=== PATIENT | male | born 1950 | race Caucasian/White ===

== ENCOUNTER 2023-02-25 08:32 | Emergency (ER) | payer MEDICARE, BC, SELFPAY ==
[2023-02-25] VITALS (42 sets, daily range): BP systolic 110–134; BP diastolic 60–71; PULSE 41–62; RESP 18–20; TEMP 36.4–36.5; O2SAT 89–100; BMI 28.1
[2023-02-25] MEDS: diphenhydrAMINE 50 MG/ML inj 25 MG IVP (09:16)
[2023-02-25] MEDS: EPINEPHrine 0.3 MG PEN IM (09:16)
[2023-02-25] MEDS: METHYLPREDNISOLONE SOD SUCC 62.5 MG/ML (125) 125 MG IVP (09:17)
[2023-02-25] MEDS: FAMOTIDINE 10 MG/ML inj 20 MG IVP (09:17)
[2023-02-25] MEDS: TRANEXAMIC ACID 100 MG/ML INJ 1000 MG IV (09:29)
[2023-02-25] MEDS: 0.9 % SODIUM CHLORIDE 1000 ml 1,000 ML IV (11:17)
--- NOTE | 2023-02-25 11:59 | ED_ITS ---
HPI - General Adult General Date Seen: 02/25/23 Chief complaint: Allergic Reaction Stated complaint: swollen throat / tongue Time Seen by Provider: 02/25/23 08:52 History of Present Illness HPI narrative: This is a very pleasant 73-year-old male accompanied to the ER today by his with concern for swelling of his tongue, throat. He has a history of hypertension and is on lisinopril. He also on propranolol for blood pressure and a medication for migraine headache prophylaxis. He has not had any other new recent medications. No no recent foods. No change in his medication doses lately. When he woke up this morning he noticed the had swelling involving his tongue (more so on the left than on the right, the back of his throat, and a little bit under his chin. He is able to speak. No difficulty breathing. He says his mouth feels tight when he tries to swallow. No fever. No hives. No other difficulty breathing. No chest pain. No palpitations. No lightheadedness. His made him come here to the ER. His symptoms are more less stable since he 1st noticed them and not really getting worse. Related Data Home Medications Medication Instructions Recorded Confirmed latanoprost 0.005 % eye drops ml ophthalmic (eye) 05/06/22 11/08/22 loratadine 10 mg tablet 10 mg PO QDAY 05/06/22 11/08/22 propranolol 40 mg tablet 40 mg PO BID 05/06/22 11/08/22 Previous Rx's Medication Instructions Recorded albuterol sulfate 90 mcg/actuation 2 puff inhalation Q4-6H PRN 05/06/22 aerosol inhaler shortness of breath or wheezing #8.5 grams Allergies Allergy/AdvReac Type Severity Reaction Status Date / Time lisinopril Allergy Intermediate Swelling Verified 02/25/23 10:45 of Lip/Tongue/Throat clindamycin AdvReac Intermediate Unknown Verified 11/08/22 13:33 varenicline [From Chantix] AdvReac Intermediate hives Verified 11/08/22 13:33 [facility] Medical History (Updated 02/25/23 @ 14:11 by Pantera Sanabria MD) Smoker ?F17.200 - Nicotine dependence, unspecified, uncomplicated (ICD-10) Pneumonia ?J18.9 - Pneumonia, unspecified organism (ICD-10) Wheeze ?R06.2 - Wheezing (ICD-10) Social History Smoking Status: Never smoker Non-prescribed substance use: denies use Exam Narrative: Exam Narrative: Constitutional: Appears well-developed and well-nourished. Alert. Conversant. Non toxic. Speech is fluent. His words are slightly ?thick? sound in due to his swollen tongue. Phonation is normal. No stridor or hoarse voice. HENT: Head: Atraumatic. Nose: Nose normal. Mouth/Throat: Oral mucosa is clear and moist. He has a subtle amount of submandibular swelling, but no trismus. He does have swelling of the tongue, more on the left than on the right. Tongue protrudes easily. No evidence for swelling of the intraoral submandibular tissues. Gums are normal. . Tonsillar pillars are normal. Perhaps minimal swelling of the uvula, although this may just be a normal uvula for him (perhaps slightly longer than normal). Tonsils and Pharynx normal. Tonsils symmetric. No tonsillar enlargement, erythema, or exudate. Phonation normal. No stridor. Eyes: Conjunctivae normal. EOM normal. Pupils equal, round, and reactive to light. No scleral icterus. Neck: Normal range of motion. Neck supple. No tracheal deviation present. Trachea midline. Cardiovascular: Normal rate, regular rhythm. No gallop. No friction rub. No murmur heard. Symmetric radial artery pulses Pulmonary/Chest: Effort normal. No stridor. No respiratory distress. No wheezes. No rales. No rhonchi . No tenderness. Abdominal: Soft. Bowel sounds normal. No distension. No mass. No tenderness. No rebound. No guarding. Musculoskeletal: RUE: Normal range of motion. No tenderness. No deformity LUE: Normal range of motion. No tenderness. No deformity RLE: Normal range of motion. No edema. No tenderness. No deformity LLE: Normal range of motion. No edema. No tenderness. No deformity Lymph: No cervical adenopathy. Neurological: Alert and oriented to person, place, and time. Normal strength. CN II-VII intact. No sensory deficit. GCS eye subscore is 4. GCS verbal subscore is 5. GCS motor subscore is 6. Normal coordination Skin: Skin is warm and dry. No rash noted. No pallor. Normal capillary refill. Psychiatric: Normal mood. Normal affect. Const: Vital Signs, click to edit/add: Vital Signs - 24 hr 02/25/23 08:35 02/25/23 08:53 02/25/23 09:00 Temperature 97.6 F Pulse Rate 48 L 46 L Pulse Rate [Right Pulse Oximeter] 51 L Respiratory Rate 18 Blood Pressure Blood Pressure [Ri ght Upper Arm] 134/64 Pulse Oximetry 98 99 [facility] 02/25/23 09:02 02/25/23 09:15 02/25/23 09:30 Temperature Pulse Rate 45 L 48 L 46 L Pulse Rate [Right Pulse Oximeter] Respiratory Rate Blood Pressure 118/69 Blood Pressure [Ri ght Upper Arm] Pulse Oximetry 99 100 100 [facility] 02/25/23 09:32 02/25/23 09:45 02/25/23 10:00 Temperature Pulse Rate 49 L 49 L 50 L Pulse Rate [Right Pulse Oximeter] Respiratory Rate Blood Pressure 127/69 Blood Pressure [Ri ght Upper Arm] Pulse Oximetry 99 99 98 [facility] 02/25/23 10:02 02/25/23 10:15 02/25/23 10:30 Temperature Pulse Rate 48 L 57 L 58 L Pulse Rate [Right Pulse Oximeter] Respiratory Rate Blood Pressure 117/63 Blood Pressure [Ri ght Upper Arm] Pulse Oximetry 98 98 97 [facility] 02/25/23 10:32 02/25/23 10:33 02/25/23 10:45 Temperature Pulse Rate 52 L 53 L 62 Pulse Rate [Right Pulse Oximeter] Respiratory Rate Blood Pressure 113/60 Blood Pressure [Ri ght Upper Arm] Pulse Oximetry 98 99 89 [facility] 02/25/23 11:00 02/25/23 11:01 02/25/23 11:15 Temperature Pulse Rate 55 L 55 L 54 L Pulse Rate [Right Pulse Oximeter] Respiratory Rate Blood Pressure 118/63 Blood Pressure [Ri ght Upper Arm] Pulse Oximetry 99 98 97 [facility] 02/25/23 11:30 02/25/23 11:32 02/25/23 11:33 Temperature Pulse Rate 54 L 54 L 58 L Pulse Rate [Right Pulse Oximeter] Respiratory Rate Blood Pressure 110/68 Blood Pressure [Ri ght Upper Arm] Pulse Oximetry 97 97 97 [facility] 02/25/23 11:45 02/25/23 12:00 02/25/23 12:01 Temperature Pulse Rate 54 L 51 L 54 L Pulse Rate [Right Pulse Oximeter] Respiratory Rate Blood Pressure 110/63 Blood Pressure [Ri ght Upper Arm] Pulse Oximetry 98 97 98 Oxygen Delivery Me thod 02/25/23 12:02 02/25/23 12:15 02/25/23 12:30 Temperature Pulse Rate 52 L 54 L 52 L Pulse Rate [Right Pulse Oximeter] Respiratory Rate Blood Pressure Blood Pressure [Ri ght Upper Arm] Pulse Oximetry 97 100 99 Oxygen Delivery Me thod 02/25/23 12:32 02/25/23 12:33 02/25/23 12:45 Temperature Pulse Rate 54 L 49 L 51 L Pulse Rate [Right Pulse Oximeter] Respiratory Rate Blood Pressure 113/65 Blood Pressure [Ri ght Upper Arm] Pulse Oximetry 98 98 96 Oxygen Delivery Me thod 02/25/23 13:00 02/25/23 13:02 02/25/23 13:03 Temperature Pulse Rate 49 L 52 L 48 L Pulse Rate [Right Pulse Oximeter] Respiratory Rate Blood Pressure 117/67 Blood Pressure [Ri ght Upper Arm] Pulse Oximetry 98 95 98 Oxygen Delivery Me thod 02/25/23 13:18 02/25/23 13:23 02/25/23 13:30 Temperature Pulse Rate 49 L 53 L Pulse Rate [Right Pulse Oximeter] Respiratory Rate Blood Pressure Blood Pressure [Ri ght Upper Arm] Pulse Oximetry 95 98 97 Oxygen Delivery Me thod 02/25/23 13:35 02/25/23 13:36 02/25/23 13:45 Temperature Pulse Rate 53 L 51 L 57 L Pulse Rate [Right Pulse Oximeter] Respiratory Rate Blood Pressure Blood Pressure [Ri ght Upper Arm] Pulse Oximetry 96 96 96 Oxygen Delivery Me thod 02/25/23 14:00 02/25/23 14:08 Temperature Pulse Rate 41 L 55 L Pulse Rate [Right Pulse Oximeter] Respiratory Rate Blood Pressure 114/66 Blood Pressure [Ri ght Upper Arm] Pulse Oximetry 96 98 Oxygen Delivery Me thod Course Course ED Course: I was called to pick roommate when this patient was arrived in triage. At the nurses started IV. Although there was no clear hives or signs for allergy induced angioedema we did treat with steroids, antihistamines and epinephrine for potential allergy. I called for consult to pharmacy to discuss other medications such as a CT a band and to anesthesia (to arrange for early airway backup) in case we needed to intubate. Although at swelling of his tongue, airway was overall patent. Discussed the risks of progression with patient and his . They strongly prefer that we try to observe rather than intubate early. Reevaluation(s) Reevaluation #1: Recheck after about 15 minutes. Stable. Is receiving be ordered medications per Reevaluation #2: Recheck after about 45 minutes. Stable. No increasing swelling. No new stridor or difficulty breathing or voice changes. Reevaluation #3: Recheck, has been her about about 80 minutes. Stable. Sleeping after Benadryl but easily arousable. Additional Reevaluation(s): Recheck-11:00 a.m.. Says he is doing better. Tongue is visibly less swollen than when he arrived. Still asymmetrically more swollen a on the left than on the right. Recheck-1145. was concerned that he might be developing increased swelling on the outside of his throat. I re-evaluated. I think it stable. I suspect she was noticing a change in position rather than increased swelling. Tongue continues to slowly improve. Airway still patent. Recheck-12 30-doing well. Continuing to slowly improve. Recheck-1400. Doing well. Requesting discharge. Still minimal swelling of the left side of his tongue but right side appears back to normal. No other airway swelling. Phonation remains normal. Vital Signs Vital signs: Initial Vital Signs Temperature 97.6 F 02/25/23 08:35 Temperature Source Temporal Artery Scan 02/25/23 08:35 Pulse Rate 51 L 02/25/23 08:35 Respiratory Rate 18 02/25/23 08:35 Blood Pressure 134/64 02/25/23 08:35 Blood Pressure Mean 87 02/25/23 08:35 Blood Pressure Position Sitting 02/25/23 08:35 Pulse Oximetry 98 02/25/23 08:35 Oxygen Delivery Method Room Air 02/25/23 08:35 Vital Signs Temperature 97.6 F 02/25/23 08:35 Pulse Rate 51 L 02/25/23 08:35 Respiratory Rate 18 02/25/23 08:35 Blood Pressure 134/64 02/25/23 08:35 Pulse Oximetry 98 02/25/23 08:35 Oxygen Delivery Method Room Air 02/25/23 08:35 Temperature 97.6 F 02/25/23 08:35 Pulse Rate 55 L 02/25/23 14:08 Respiratory Rate 18 02/25/23 08:35 Blood Pressure 114/66 02/25/23 14:08 Pulse Oximetry 98 02/25/23 14:08 Oxygen Delivery Method Room Air 02/25/23 08:35 Medical Decision Making MDM Narrative Medical decision making narrative: Very pleasant 73-year-old male with a history of hypertension, migraine headaches, on long-term lisinopril presenting to the ER today with swelling of his tongue, mouth, and submandibular tissues. 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 No clear hives or other anaphylactic pathology but we did treat with antihistamines and epinephrine in case there was an allergy component. No improvement with those interventions. We administered tranexamic acid 1 g IV here in the ER for potential A's inhibitor induced angioedema. Other medications such as for her related to her angioedema or not formulary. There is no family history of angioedema to suggest HAE. Initial presentation was concerning given amount of swelling and perhaps subtle voice changes. We made initial preparations in case he needed emergent airway intervention. However he had steady and slow improvement over multiple hours of observation with many rechecks here in the ER. He did well with steady and slow improvement. At this time he feels comfortable discharging to home. His can be with him at home and monitor carefully. They understand the need to return to the ER with any recurrent swelling, trouble breathing or other concerning symptoms. They will discontinue lisinopril. We will now list it as an allergy in his chart. He will follow-up with his primary care provider to initiate alternative antihypertensive meds within 1 week. Precautions for return to the are reviewed. Questions answered. Discharge Plan Discharge Clinical Impression: Angioedema Patient Disposition: Home, Self-Care Condition: Stable Instructions: Angioedema (ED) Additional Instructions: As we discussed, do not take anymore lisinopril. Come back to the ER right away if you have worsening swelling of your tongue, lips, throat, or other parts of your body or if you have any trouble breathing, or other concerns. Follow-up with your regular doctor within 1 week for a blood pressure check and to start new medications, if needed. Prescriptions: No Action propranolol 40 mg tablet 40 mg PO BID Patient Comments: TAKE 1 TABLET BY MOUTH 2 TIMES DAILY latanoprost 0.005 % drops ophthalmic (eye) loratadine 10 mg tablet 10 mg PO QDAY albuterol sulfate 90 mcg/actuation HFA aerosol inhaler 2 puff inhalation Q4-6H PRN (Reason: shortness of breath or wheezing) Qty: 8.5 0RF Follow Up/Referrals: Akash Barnard MD [Primary Care Provider] - Stand Alone Forms: [employer] Info Instructions
--- NOTE | 2023-02-25 13:19 | ED.NURSE ---
Patient stable. No increased swelling noted.
--- NOTE | 2023-02-25 14:30 | ED.NURSE ---
D/c information given. No other questions. Clarified with ER MD pt does not need 1500 dose of methylprednisolone, received one time dose at 0900.
== END 2023-02-25 14:28 | disposition home or self-care (01) ==
PROVIDERS: Emergency Provider Emergency Medicine; PCP Family Medicine
DX: T78.3XXA Angioneurotic edema, initial encounter (principal); T88.7XXA Unspecified adverse effect of drug or medicament, initial encounter; T46.4X5A Adverse effect of angiotensin-converting-enzyme inhibitors, initial encounter
CPT/HCPCS: 94761; 96372; 96374; 96375; 99284; J0171; J1200; J2930; J7030; S0028

== ENCOUNTER 2024-11-29 10:31 | Outpatient (CLI) | payer MEDICARE, BC, SELFPAY ==
[2024-11-29 10:41] LABS: Appearance Urine Cloudy (Clear); Bilirubin Urine Negative (Negative); Blood Urine 2+ (Negative); Color Urine Yellow (Yellow); Glucose Urine Negative (Negative); Ketones Urine Negative (Negative); Leukocyte Esterase Urine 3+ (Negative); Nitrite Urine Positive (Negative); Protein Urine 2+ (Negative); Urobilinogen Urine 0.2 (0.2-1.0)
[2024-11-29 10:49] LABS: Bacteria Urine Many; Squamous Epithelial Cell Urine Few (None-Few); WBC Urine >100 (0-5)
== END 2024-11-29 10:32 | disposition home or self-care (01) ==
PROVIDERS: PCP Family Medicine
DX: N12 Tubulo-interstitial nephritis, not specified as acute or chronic (principal); B96.29 Other Escherichia coli [E. coli] as the cause of diseases classified elsewhere
CPT/HCPCS: 81001; 81003; 87086

== ENCOUNTER 2024-12-01 06:29 | Emergency (ER) | payer MEDICARE, BC, SELFPAY ==
--- OUTSIDE RECORDS SUMMARY | 2024-12-01 06:31 | XMS_ITS | Clinical Summary ---
Author Organization [facility] [facility] Address [address] [place] [id number] Care Team Providers Care Dumper Operator Name Role Phone Akash Barnard MD Primary Care Provider Allergies Active Allergy Reactions Criticality Noted Date Comments Sulfamethoxazole-Trimethoprim Rash,Itching 01/09 Varenicline Rash 03/24/2012 Ciprofloxacin Rash 09/18/2015 Clindamycin Rash Medium 01/16/2011 Hydrochlorothiazide *Unknown 09/18/2015 Lisinopril Angioedema 02/25/2023 Meloxicam GI Upset 09/18/2015 Medications cholecalciferol (VITAMIN D) 1,000 unit capsule Take 1 capsule by mouth once daily. 0 1 Active diphenhydrAMINE (BENADRYL) 25 mg capsule Take 1 capsule by mouth every 6 hours if needed. 0 4 Active ibuprofen (ADVIL; MOTRIN) 200 mg tablet Every 6 Hours as needed Active latanoprost (XALATAN) 0.005 % ophthalmic solution INSTILL 1 DROP IN BOTH EYES EVERY EVENING 1 Active amLODIPine (NORVASC) 10 mg tabletIndicatio ns:Hypertension , unspecified type TAKE 1 TABLET BY MOUTH EVERY DAY 90 Tablet 2 4 Active diclofenac topical (VOLTAREN) 1 % gelIndications: Acute pain of left knee Apply 2 g topically to affected area(s) four times daily. 150 g 2 4 Active SUMAtriptan (IMITREX) 25 mg tabletIndicatio ns:Migraine with aura and without status migrainosus, not intractable TAKE 1 TABLET (25 MG) BY MOUTH 2 TIMES DAILY IF NEEDED FOR MIGRAINE. GIVE AT MINIMUM 2HRS APART. MAX DOSE: 200MG PER 24HRS. 10 Tablet 3 4 Active topiramate 25 mg tabletIndicatio ns:Migraine with aura and without status migrainosus, not intractable TAKE 1 TABLET BY MOUTH EVERY DAY 60 Tablet 5 Active CPAPIndications :ARIES (obstructive sleep apnea) CPAP (E0601) machine for home use at pressure: 10cm , Choice of mask (A7030 or A7034) w/full face cushion (A7031) x1-2/mo, nasal cushion (A7032) x2/mo, or nasal pillows (A7033) x 2/mo; Length of Need: 99 months; Frequency of use: Daily 1 Each 11 5 Active CPAPIndications :ARIES (obstructive sleep apnea) CPAP machine for home use at pressure, nasal mask x1/3month with nasal pillows x 2/mo 1 Device 11 0 11/12/19 25 Discontinu ed(*Med complete/R egimen complete/L evel of care change) Active Problems Problem Noted Date Diagnosed Date Tobacco abuse 02/05/2024 Bilateral lower extremity edema 11/11/2022 Asymptomatic varicose veins of both lower extrem ities 11/11/2022 ARIES 11/12/2007 AHI-50 03/22/2019 Rotator cuff tear 07/10/2012 Overview (03/20/2021): right. no surgery. Cellulitis of leg, left 02/22/2011 Colon polyp 06/28/2010 Overview (07/27/2021): Colonoscopy 06/2010 polyp repeat in 3 years Colonoscopy 07/2021 2-TA, repeat in 5 years Unspecified essential hypertension 04/18/2010 Migraine, unspecified, witho ut mention of intractable migraine without mention of status migrainosus Unspecified retinal detachment Overview (02/19/2007): Left eye only Unspecified tinnitus Impaired fasting glucose Resolved Problems Problem Noted Date Diagnosed Date Resolved Date Anticoagulation monitoring, special range 07/07/2015 10/18/2021 S/P hip replacement, right 06/26/2015 0 10/21/2022 Anticoagulation monitoring, special range (1.8-2.5) 06/26/2015 07/17/2015 SLEEP APNEA AHI-49.8 11/10/2007 12/09/2007 03/22/2019 Other and unspecified hyperlipidemia 02/19/2007 06/22/2014 Impotence of organic origin 10/21/2022 Encounters Date Type Department Care Team Description 11/25/2024 Telephone [email or web address] [address] [place] [address] Jenny Hinds PA DME Supply (cpap compliance) 11/11/2024 7:15 AM CDT Telemedicine [email or web address] [address] [place] [address] Jenny Hinds PA 11/07/2024 Orders Only [facility] Scanner 1 scan: (1-Ord) RESMED, COMPLIANCE REPORT, 11/07/2024 10/22/2024 Refill [facility] [place] [address] [facility] [address] [place] [address] Mony Fernandez MBBS Refill Request (Topiramate) from Last 3 Months Immunizations Immunization Administration Dates Next Due COVID-19 VACCINE SPIKEVAX (M ODERNA 50MCG/0.5ML) 12YO+ PFS 04/27/2024 COVID-19 vaccine (Pfizer-Bio NTech 30mcg/0.3mL) 12YO+ BIVALENT PF, MDV 10/21/2022 COVID-19 vaccine (Pfizer-Bio NTech 30mcg/0.3mL) 12YO+ TK-SUCROSE PF, MDV 10/18/2021 COVID-19 vaccine (Pfizer-Bio NTech 30mcg/0.3mL) PF, MDV 03/20/2021,09/03/2020,08/13/2020 INFLUENZA, IIV3 PF (AGE >= 6 MO) 03/08/2011 Influenza, High-dose Quadriv alent Inactivated 05/11/2022,04/10/2020 Influenza, IIV3 (Age 6-35 mos) 04/12/2009 Influenza, IIV3 (Age >=3 years) 05/26/20 13,03/24/2012,03/08/2011,2009,08/03/2008,04/22/2007,04/22/2003 Influenza, IIV4 06/13/2015,06/22/2014 Influenza, Inactivated AIIV4 (Age 65+ Years) Preserv Free 03/20/2021 Influenza, Inactivated IIV3 (Age 65+ Years) Preserv Free 04/27/2024,06/15/2019,03/17/2018 Pneumococcal Conj 20-valent (Prevnar 20) 02/05/2024 Pneumococcal Poly,23-Valent (Pneumovax) 03/17/2018 Pneumococcal conj 13-Valent (Prevnar 13) 09/12/2016 Td (Age >=7 Years) 11/07/2006,10/05/2006, 994 Tdap 10/24/2022,03/08/2011 Varicella Vaccine 03/24/2012 Family History Medical History Relation Name Comments Cancer-prostate Father approx age 6 0, d88 Stroke Father Other Mother knee replacemen t bilateral Diabetes Neg. 1 Anesthesia Problem Neg. 2 Cancer-colon No Family History Heart Disease No Family History Relation Name Status Comments Brother 1 Alive Brother 2 Alive Father Alive Mother Alive Neg. 1 Neg. 2 Sister Alive Social History Tobacco Use Types Packs/Day Years Used Date Smoking Tobacco: Every Day Cigarettes 0.3 38 Started: 02/18/1980; Last attempted to quit: 02/17/2018 Cigars Smokeless Tobacco: Never Tobacco Cessation:Ready to Q uit: No; Counseling Given: Yes Alcohol Use Standard Drinks/Week Comments Yes 0 (1 standard drink = 0.6 oz pur e alcohol) 2 drinks per month PHQ-2 Answer Date Recorded PHQ-2 TOTAL SCORE 0 02/05/2024 Social Connections Answer Date Recorded Do you often feel lonely or isolated from those around you? 0 02/05/2024 Financial Resource Strain Answer Date R ecorded Difficulty of Paying Living Expenses 3 02/05/2024 Difficulty of Paying Living Expenses Not on file 02/05/2024 Food Insecurity Answer Date Recorded Do you worry your food will run out before you are able to buy more? 1 02/05/2024 Transportation Needs Answer Date Record ed Does lack of transportation keep you from medica l appointments? 1 02/05/2024 Does lack of transportation keep you from work, meetings or getting things that you need? 1 02/05/2024 Housing Stability Answer Date Recorded What is your housing situation today? 1 02/05/2024 Utilities Answer Date Recorded Do you have trouble paying f or utilities (for example, heat, electricity, water, phone)? 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 Not on file Not on f ile Obstetrics History Last Filed Vital Signs Vital Sign Reading Time Taken Comments Blood Pressure 125/76 04/27/2024 9:19 AM MALT SPECIFICATIONS CONTROL ASSISTANT Pulse 52 04/27/2024 9:19 AM MALT SPECIFICATIONS CONTROL ASSISTANT Temperature 36.4 C (97.5 F) 11/11/2022 7:57 AM CDT Respiratory Rate 16 02/12/2011 3:33 PM CDT Oxygen Saturation 97% 04/27/2024 9:19 AM MALT SPECIFICATIONS CONTROL ASSISTANT Inhaled Oxygen Concentration - - Weight 79 kg (174 lb 3.2 oz) 04/27/2024 9:19 AM MALT SPECIFICATIONS CONTROL ASSISTANT Height 172.7 cm (5' 8) 04/27/2024 9:19 AM MALT SPECIFICATIONS CONTROL ASSISTANT Body Mass Index 26.49 04/27/2024 9:19 AM MALT SPECIFICATIONS CONTROL ASSISTANT Plan of Treatment Health Maintenance Due Date Last Done Comments Zoster (shingles) series for age 50+ (1 of 2) 2001 AAA screening age 65-74 01/19/2016 COVID-19 vaccine series ( season) 2024 04/27/2024, 10/21/2022, 10/18/2021, Additional history exists Depression screening for age 12+ 02/04/2025 02/05/2024, 10/21/2022, 10/18/2021, Additional history exists Medicare Wellness for age 65+ 02/05/2025 02/05/2024, 10/21/2022, 10/18/2021, Additional history exists BMI (ht and wt on same day) for age 18+ 04/27/2025 04/27/2024, 02/05/2024, 12/09/2022, Additional history exists RSV vaccine for adults or (1 - 1-dose 75+ series) 2026 Colonoscopy through age 75 07/26/202607/26, 07/26/2021, 07/26/2021, Additional history exists Lipids for age 45-75 10/18/2026 10/18/2021, 06/21/2019, 06/24/2014, Additional history exists Tetanus booster 10/24/2032 10/24/2022, 02/09, 11/07/2006, Additional history exists Hepatitis C screening for age 18-79 Completed 06/24/2014 Tdap Completed 10/24/2022, 03/08/2011 Pneumococcal series for age 50+ Completed 02/05/2024, 03/17/2018, 09/12/2016 Influenza Vaccine Completed 04/27/2024, , 06/15/2019, Additional history exists Hepatitis B series for 19+ Aged Out N o longer eligible based on patient's age to complete this topic Procedures Procedure Name Priority Date/Time Associated Diagnosis Comments SCAN-DIAGNOSTIC REPORT 11/07/2024 12:00 AM CDT LIPID PANEL W REFLEX MEASURED LDL Routine 10/18/2021 4:31 PM CDT Lipid screening COLONOSCOPY SCREENING Routine 07/26/2021 7:26 AM MALT SPECIFICATIONS CONTROL ASSISTANT History of colon polyps ANTI HCV Routine 06/24/2014 3:22 PM MALT SPECIFICATIONS CONTROL ASSISTANT Need for hepatitis C screening test from Last 3 Months or Most Recently Relevant to Health Maintenance Results * SCAN-DIAGNOSTIC REPORT (11/07/2024 12:00 AM CDT) us Scanner OTHER Final Result * LIPID PANEL W REFLEX MEASURED LDL (10/18/2021 4:31 PM CDT) CHOLESTEROL,TOTAL 173 100 - 199 mg/dL 10/19/2021 4:08 PM CDT [facility] TRIGLYCERIDES 51 <150 mg/dL 10/19/2021 4:08 PM CDT [facility] HDL CHOLESTEROL 42 >40 mg/dL 4:08 PM CDT [facility] NON-HDL CHOLESTEROL 131 <145 mg/dl 10/19/2021 4:08 PM CDT [facility] CHOL/HDL RATIO 4.12 <4.50 10/19/2021 4:08 PM CDT [facility] LDL CHOLESTEROL 121 <=130 mg/dL 10/19/2021 4:08 PM CDT [facility] VLDL CHOLESTEROL 10 <=30 mg/dL 10/19/2021 4:08 PM CDT [facility] PROVIDER ORDERED STATUS RANDOM 10/19/2021 4:08 PM CDT [facility] Blood BLOOD SPECIMEN / Unknown Venipuncture / Unknown 10/18/2021 4:31 PM CDT 10/18/2021 4:31 PM CDT us Akash Barnard MD CHEMISTRY Final Result [facility] [address] [place] [address], [place] * COLONOSCOPY (07/26/2021 7:40 AM MALT SPECIFICATIONS CONTROL ASSISTANT) 07/26/2021 7:40 AM MALT SPECIFICATIONS CONTROL ASSISTANT Narrative Transcriptions Derrick Garcia MD - 07/26/2021 8:39 AM CST Patient Name: Maykel Gasca Procedure Date: 07/26/2021 Gender: Male Date of : 1950 Admit Type: Outpatient Procedure: Colonoscopy Proceduralist: Derrick Garcia MD , Danielle Marcano, RN (Nurse), Erika Maguire RN (Nurse) Referring MD: Akash Barnard Indications/Pre-Op Diagnosis: High risk colon cancer surveillance:Personal history of sessile serrated colon polyp (10mm or greater in size), Last colonoscopy:June 2010 Medications: Fentanyl 100 micrograms IV, Midazolam 2 mgIV, The level of sedation administered wasmoderate Procedure Description: The patient had risks, benefits and alternatives explained to andgave informed consent. The patient had a stable cardiopulmonary status and judged an adequate candidate for conscious sedation. The [id number] was passed through the anus and advanced tothe cecum, identified by appendiceal orifice and ileocecal valve. The colonoscopy was performed without difficulty. The patient toleratedthe procedure well. The quality of the bowel preparation was good. The ileocecal valve, appendiceal orifice, and rectum were photographed. Complications: No immediate complications. Estimated Blood Loss & Specimen: Estimated blood loss: none. Specimen collected - Yes and sent to Laboratory Findings: The perianal and digital rectal examinations were normal. A 3 mm polyp was found in the ascending colon. The polyp was sessile. The polyp was removed with a cold snare. Resection and retrieval were complete. A 3 mm polyp was found in the rectum. The polyp was sessile. Thepolyp was removed with a cold snare. Resection and retrieval werecomplete. Scattered small and large-mouthed diverticula were found in theentire colon. The exam was otherwise without abnormality on direct and retroflexion views. Impressions/Post-Op Diagnosis: - One 3 mm polyp in the ascending colon, removed with a cold snare. Resected and retrieved. - One 3 mm polyp in the rectum, removed with a cold snare. Resectedand retrieved. - Diverticulosis in the entire examined colon. - The examination was otherwise normal on direct and retroflexionviews. Recommendation: - Patient has a contact number available for emergencies. The signsand symptoms of potential delayed complications were discussed with the patient. Return to normal activities tomorrow. Written discharge instructions were provided to the patient. - Resume previous diet. - Continue present medications. - Await pathology results. - Repeat colonoscopy in 5 years for surveillance. Moderate Sedation: Moderate (conscious) sedation was administered by the endoscopy nurse and supervised by the endoscopist. The following parameters were monitored: oxygen saturation, heart rate, respiratory rate, blood pressure, adequacy of pulmonary ventilation and reponse to care. Please refer to the patient's medical record flowsheets and nursing notes for moderate sedation details. Total physician intraservice time was * minutes. Derrick Garcia MD 07/26/2021 8:39:17 AM This report has been signed electronically. Note Initiated On: 07/26/2021 7:40 AM Procedure Code(s): --- Professional --- 65829, Colonoscopy, flexible; with removalof tumor(s), polyp(s), or other lesion(s) bysnare technique Diagnosis Code(s): --- Professional --- Z86.010, Personal history of colonicpolyps K63.5, Polyp of colon K62.1, Rectal polyp K57.30, Diverticulosis of large intestine without perforation or abscess withoutbleeding CPT copyright 2020 [employer]. All rights reserved. The codes documented in this report are preliminary and upon pillar worker reviewmay be revised to meet current compliance requirements. Scope In: 8:13:07 AM Scope Withdrawal Time 0 hours 12 minutes 13 seconds Scope Out: 8:30:35 AM us Derrick Garcia MD PROCEDURE ORD Final Res ult * ANTI HCV [45425.2] (06/24/2014 3:22 PM MALT SPECIFICATIONS CONTROL ASSISTANT) HEPATITIS C ANTIBODY Non-Reacti ve Non-Reacti ve 06/24/2014 8:08 PM MALT SPECIFICATIONS CONTROL ASSISTANT [facility] Blood specimen (specimen) BLOOD SPECIMEN / Unknown Venipuncture / Unknown 06/24/2014 3:22 PM MALT SPECIFICATIONS CONTROL ASSISTANT 06/24/2014 3:22 PM MALT SPECIFICATIONS CONTROL ASSISTANT Narrative [facility] - 06/24/2014 8:08 PM MALT SPECIFICATIONS CONTROL ASSISTANT Antibodies to HCV not detected; does not exclude the possibility of exposure to HCV. Akash Barnard MD SEND OUTS Final Result [facility] [address] [place] [address], from Last 3 Months or Most Recently Relevant to Health Maintenance Insurance [employer] MR PB ONLY Care Teams Dumper Operator Relationship Specialty Start Date End Date Akash Barnard MD [address] [place] [address] PCP - General 01/10/06
[2024-12-01 06:36] VITALS: BP 99/62; PULSE 79; RESP 18; TEMP 37.1; O2SAT 95; BMI 26.8
[2024-12-01 06:50] LABS: Appearance Urine Slightly Cloudy (Clear); Bilirubin Urine Negative (Negative); Blood Urine 2+ (Negative); Color Urine Yellow (Yellow); Glucose Urine Negative (Negative); Ketones Urine Negative (Negative); Leukocyte Esterase Urine Negative (Negative); Nitrite Urine Negative (Negative); Protein Urine Trace (Negative); Specific Gravity Urine 1.015 (1.000-1.030); Urobilinogen Urine 0.2 (0.2-1.0)
[2024-12-01 06:58] LABS: Amorphous Sediment Urine Many; Bacteria Urine Few; RBC Urine 0-2 (0-2); Squamous Epithelial Cell Urine Few (None-Few); WBC Urine 0-2 (0-5)
--- NOTE | 2024-12-01 07:00 | XR_ITS ---
Patient: JJ SARABIA Facility:?[facility] Patient ID:?[id number] Site Patient ID:?[id number]. Site :?1950 Study:?XRay-Chest 2V-12/01/2024 7:56:09 AM Ordering Physician:Oscar Arnett Final Report: INDICATION: Cough and fever . TECHNIQUE: Chest 1 views. COMPARISON: None. FINDINGS: Lungs and pleural spaces: No consolidation. No pleural effusion. No pneumothorax. Cardiovasculature and mediastinum: Heart size and mediastinal contours are normal. IMPRESSION: No acute cardiopulmonary abnormality. Dictated by Dany Stone MD @ 12/01/2024 8:07:15 AM Signed by:?Dany Stone MD @12/01/2024 8:07:15 AM (Electronic Signature)
--- NOTE | 2024-12-01 07:11 | ED.GENADULT ---
HPI - General Adult General Chief complaint: Fever Stated complaint: UTI got worst - temp Time Seen by Provider: 12/01/24 06:48 History of Present Illness HPI narrative: 74-year-old male presents to the ED with a 3 day history of burning with urination. Was evaluated the next day in Urgent Care at that time he had a cough, fever and persistent urinary symptoms. Appropriate blood work was performed, urinalysis was highly suspicious for infection. He was given a dose of Rocephin due to the fever and then transitioned onto appropriate cephalosporin. Patient has been taking the medication and actually felt a little better yesterday but then fever and chills started this morning, he presents to the ED feeling more ill again. Is still having some burning with urination. No vomiting. Cough is nonproductive, no chest pain associated with it. He noted a little hematuria yesterday, seems to have improved today. No diarrhea, no falls, no neurological changes or weakness. No difficulty taking the antibiotic. No prior history of resistant infections, but does have an allergy to ciprofloxacin and clindamycin. Has not tried other agents to improve symptoms today. Still eating and drinking without difficulty. Past medical history is notable for tobacco use, hypertension, history of migraines. Home meds are to para mate prophylactically, sumatriptan on demand, amlodipine for hypertension and currently taking his cefpodoxime as prescribed. Allergies reviewed. Pertinent for the antibiotic allergies to Cipro and clindamycin. ROS is notable for the generalized and urinary symptoms as well as respiratory symptoms as above, otherwise denies times 12 systems. Related Data Home Medications ?Medication ?Instructions ?Recorded ?Confirmed amlodipine 10 mg tablet 10 mg PO DAILY 04/02/23 12/01/24 topiramate 25 mg tablet 25 mg PO DAILY 04/02/23 12/01/24 sumatriptan succinate 25 mg tablet mg PO 12/01/24 Allergies Allergy/AdvReac Type Severity Reaction Status Date / Time lisinopril Allergy Intermediate Swelling Verified 11/29/24 10:30 of Lip/Tongue/Throat ciprofloxacin Allergy Unknown Verified 11/29/24 10:30 hydrochlorothiazide Allergy Unknown Verified 11/29/24 10:30 meloxicam Allergy Unknown Verified 11/29/24 10:30 clindamycin AdvReac Intermediate Unknown Verified 11/29/24 10:30 varenicline (From Chantix) AdvReac Intermediate hives Verified 11/29/24 10:30 [facility] Medical History Smoker ?F17.200 - Nicotine dependence, unspecified, uncomplicated (ICD-10) Pneumonia ?J18.9 - Pneumonia, unspecified organism (ICD-10) Wheeze ?R06.2 - Wheezing (ICD-10) Social History Smoking Status: Never smoker How often do you have a drink containing alcohol: never AUDIT-C Alcohol total score: 0 Non-prescribed substance use: denies use Exam Const: Vital Signs, click to edit/add: Vital Signs - 24 hr 12/01/24 06:36 12/01/24 07:38 12/01/24 07:54 Temperature 98.7 F 98.9 F Pulse Rate [Right Pulse Oximeter] 79 59 L Respiratory Rate 18 18 Blood Pressure [Ri ght Upper Arm] 99/62 102/61 Pulse Oximetry 95 96 Oxygen Delivery Me thod Room Air Room Air 12/01/24 08:00 Temperature Pulse Rate [Right Pulse Oximeter] 54 L Respiratory Rate Blood Pressure [Ri ght Upper Arm] 107/63 Pulse Oximetry 98 Oxygen Delivery Me thod Room Air Documenting provider has reviewed patient's vital signs: yes Common normals: no apparent distress and alert General appearance: cooperative and well kempt HENMT: Common normals: normocephalic, moist oral mucous membranes and oropharynx normal Head and scalp: normocephalic Face and sinus: normal facial exam Mouth: oral and palatal mucosa normal Throat: posterior oropharynx normal Eye: Common normals: conjunctivae normal General eye: normal appearance of both eyes Conjunctiva: conjunctiva(e) normal Neck & C-Spine: Common normals: full ROM and no lymphadenopathy Resp: Common normals: normal respiratory effort, no use of accessory muscles and clear to auscultation bilaterally Effort & inspection: able to speak in complete sentences Auscultation: clear to auscultation bilaterally Cardio: Common normals: regular rate, regular rhythm, S1 normal heart sound, S2 normal heart sound and no murmurs Rate: regular rate Rhythm: regular rhythm Heart sounds: S1 normal and S2 normal GI: Common normals: Normal to inspection, nondistended, normoactive bowel sounds present, soft to palpation, non-tender, no hepatosplenomegaly and no masses Palpation: soft and no hepatosplenomegaly : Common normals: no CVA tenderness Bladder/kidney exam: no CVA tenderness Back & Pelvis: Common normals: no CVA tenderness Extremity: Common normals: normal to inspection Neuro: Common normals: moves all extremities and gait normal Sensorium/orientation: alert Speech: speech normal Psych: Common normals: speech normal Appearance: well kempt Attitude: engaged Activity/motor behavior: appropriate eye contact Speech: normal speech Mood and affect: euthymic mood Attention/concentration: attention grossly intact Memory/cognition: memory grossly intact Insight: insight good Judgement: judgment good Skin: Common normals: no rashes or lesions noted General skin exam: no rashes or lesions noted Course Course ED Course: 74-year-old male with urinary infection diagnosed 2 days in Urgent Care presenting with fever and worsening symptoms. Cultures and sensitivities have freshly returned and it does show ESBL. Antibiotic choice was excellent but unfortunately will not treat this infection. Will place peripheral IV, bolus 500 normal saline since his blood pressure is borderline. No tachycardia nor a beta-leroy to mask this marker for sepsis. Will obtain blood culture, CBC, comprehensive metabolic panel, urine culture, repeat urinalysis, chest x-ray due to cough symptoms, CRP. Will give Tylenol 1000 mg p.o. x1 for fever. May require hospitalization otherwise outpatient ertapenem through infusion center if remainder of labs look good and his clinical status does improve. Certainly could have other infections including pneumonia, pyelonephritis, hematological spread, influenza, intra-abdominal infections, amongst others. Because of this will perform chest x-ray and flu swabs as well. Repeat blood pressure 102 systolic. Still no tachycardia Reevaluation(s) Time of Reevaluation #1: 08:15 Reevaluation #1: Counseled patient on findings, extensively discussed ESBL. Patient is sensitive to ertapenem. There are not any good oral outpatient options for him based on his allergy profile and sensitivities. My recommendation is or to [place] every 24 hours for a total of 7 doses. Blood cultures are pending, counseled patient that if blood cultures were positive, the treatment would still be your to [place] but we may change hour duration and further workup based on this knowledge. The alarm symptoms reviewed that would warrant coming back to the ED such as severe weakness, signs of sepsis, altered mental status or severe pain. Orders faxed to infusion center for ertapenem 1 g once daily x6 more doses. First dose will need to be tomorrow. Okay to use Tylenol and ibuprofen as needed for fever. There are no other signs of sepsis. Lactate is normal, white count is fairly stable. I think patient is very appropriate for outpatient treatment and is reliable to return if any signs of worsening. Vital Signs Vital signs: Initial Vital Signs Temperature 98.7 F 12/01/24 06:36 Temperature Source Temporal Artery Scan 12/01/24 06:36 Pulse Rate 79 12/01/24 06:36 Respiratory Rate 18 12/01/24 06:36 Blood Pressure 99/62 12/01/24 06:36 Blood Pressure Mean 74 12/01/24 06:36 Blood Pressure Position Sitting 12/01/24 06:36 Pulse Oximetry 95 12/01/24 06:36 Oxygen Delivery Method Room Air 12/01/24 06:36 Vital Signs Temperature 98.7 F 12/01/24 06:36 Pulse Rate 79 12/01/24 06:36 Respiratory Rate 18 12/01/24 06:36 Blood Pressure 99/62 12/01/24 06:36 Pulse Oximetry 95 12/01/24 06:36 Oxygen Delivery Method Room Air 12/01/24 06:36 Temperature 98.9 F 12/01/24 07:54 Pulse Rate 54 L 12/01/24 08:00 Respiratory Rate 18 12/01/24 07:38 Blood Pressure 107/63 12/01/24 08:00 Pulse Oximetry 98 12/01/24 08:00 Oxygen Delivery Method Room Air 12/01/24 08:00 Medications Administered Medications: Discontinued Medications Generic Name Dose Route Start Last Admin Trade Name Freq PRN Reason Stop Dose Admin Sodium Chloride 500 mls @ 500 mls/hr 12/01/24 07:01 12/01/24 07:17 0.9 % Sodium Chloride 500 Ml IV 12/01/24 08:00 500 mls/hr .Q1H AMOS Administration Ertapenem 1 gm/ Sodium 100 mls @ 200 mls/hr 12/01/24 07:20 12/01/24 07:52 Chloride IVPB 12/01/24 07:49 200 mls/hr ONCE ONE Administration Medical Decision Making Lab Data Lab results reviewed: Yes I reviewed the patient's lab results Lab results narrative: Lactate normal. White count is elevated but down a little from 2 days ago. Good renal function, normal electrolytes. Viral swabs are negative. Urinalysis show some improvement but prior cultures are reviewed as well. Labs: Lab Results 12/01/24 12/01/24 Range/Units 06:41 07:15 WBC 12.98 H (4.50-11.00) K/uL RBC 4.58 (4.30-5.90) m/uL Hgb 13.5 (13.5-17.5) gm/dL Hct 39.4 (37.0-53.0) % MCV 86 (80-100) fL MCH 30 (26-34) pg MCHC 34 (32-36) gm/dL RDW Coeff of Ranjeet 12.8 (11.5-15.5) % Plt Count 103 L (140-440) K/uL Neut % (Auto) 78.9 H (42.0-72.0) % Lymph % (Auto) 11.4 L (20-44) % Mobile % (Auto) 8.9 (0.0-11.0) % Eos % (Auto) 0.2 (0.0-7.0) % Baso % (Auto) 0.2 (0.0-3.0) % Neut # (Auto) 10.20 H (1.7-7.0) K/uL Lymph # (Auto) 1.50 (0.90-2.90) K/uL Mobile # (Auto) 1.20 H (0.00-0.90) K/UL Eos # (Auto) 0.00 (0.00-0.50) K/uL Baso # (Auto) 0.00 (0.00-0.30) K/uL Abs Immat Gran (auto) 0.10 (0.00-0.30) K/uL Imm/Tot Granulo (auto) 0.4 % Sodium 137 (135-149) mmol/L Potassium 3.3 L (3.6-5.1) mmol/L Chloride 109 (96-114) mmol/L Carbon Dioxide 21 (20-32) mmol/L Anion Gap 7 (7-15) mEq/L BUN 13 (7-30) mg/dL Creatinine 0.9 (0.5-1.5) mg/dL Estimated Creat Clear 61.51 Estimated GFR 90 ml/min Glucose 118 H (60-115) mg/dL Lactate 1.0 (0.5-1.9) mmol/L Calcium 9.1 (8.4-10.6) mg/dL Total Bilirubin 0.8 (0.1-1.5) mg/dL AST 25 (12-35) U/L ALT 16 (4-50) U/L Alkaline Phosphatase 57 (40-150) U/L C-Reactive Protein 16.1 H (0.5-1.0) mg/dL Total Protein 6.7 (6.0-8.3) g/dL Albumin 3.9 (3.3-5.0) g/dL Urine Color Yellow (Yellow) Urine Appearance Slightly Cloudy A (Clear) Urine pH 7.0 (5.0-8.5) Ur Specific [place] 1.015 (1.000-1.030) Urine Protein Trace A (Negative) Urine Glucose (UA) Negative (Negative) Urine Ketones Negative (Negative) Urine Blood 2+ A (Negative) Urine Nitrite Negative (Negative) Urine Bilirubin Negative (Negative) Urine Urobilinogen 0.2 (0.2-1.0) Ur Leukocyte Esterase Negative (Negative) Urine RBC 0-2 (0-2) Urine WBC 0-2 (0-5) Ur Squamous Epith Cells Few (None-Few) Amorphous Sediment Many A (None) Urine Bacteria Few A (None) SARS-CoV-2 (PCR) Negative SARS-CoV-2 (Negative) Influenza Type A (PCR) Negative PCR FLU A (Negative) Influenza Type B (PCR) Negative PCR FLU B (Negative) RSV (PCR) Negative PCR RSV (Negative) Imaging Data Chest x-ray: Attestation: I have reviewed the pertinent imaging results. My impression: No infiltrate, pneumonia, cardiomyopathy or other abnormality Radiologist's impression: FINDINGS: Lungs and pleural spaces: No consolidation. No pleural effusion. No pneumothorax. Cardiovasculature and mediastinum: Heart size and mediastinal contours are normal. IMPRESSION: No acute cardiopulmonary abnormality. Dictated by Dany Stone MD @ 12/01/2024 8:07:15 AM Discharge Plan Discharge Clinical Impression: Infection due to ESBL-producing Escherichia coli, Complicated urinary tract infection Patient Disposition: Home w/ Parent or Adult Condition: Stable Instructions: Urinary Tract Infection in Men (DC) Additional Instructions: As we discussed, the urine culture from the sample that you provided on Friday has come back with an unusual type of bacteria that is resistant to many antibiotics. There are a few different antibiotics that will treat but they are all given IV only, there is not an option for antibiotics by mouth. I have selected the easiest regimen for you which is for you to come into the outpatient infusion center once daily for 6 more days, completing a 7 day course of an antibiotic called ertapenem. The labs shows that this will work against this infection. You may still run a fever for another 1-2 days, continue taking Tylenol and or ibuprofen if needed. Drink lots of fluids and rest for the next 24 hours. The infusion center will call you later today to set up these treatment appointments. If you have severe weakness, neurological changes or severe pain, you should return to the emergency department. Activity Level: Activity as Tolerated Discharge Diet: Regular Prescriptions: Discontinued cefpodoxime 200 mg tablet 200 mg PO BID 7 Days Qty: 14 0RF Rx Instructions: must administer with a meal/food No Action amlodipine 10 mg tablet 10 mg PO DAILY topiramate 25 mg tablet 25 mg PO DAILY sumatriptan succinate 25 mg tablet PO Follow Up/Referrals: Akash Barnard MD [Primary Care Provider, Family Practice] Stand Alone Forms: [employer] Info Instructions
[2024-12-01] MEDS: 0.9 % SODIUM CHLORIDE 500 ML 500 ML IV (07:17)
[2024-12-01 07:31] LABS: Basophils Percent Auto 0.2 % (0.0-3.0); Eosinophils Percent Auto 0.2 % (0.0-7.0); Hematocrit 39.4 % (37.0-53.0); Hemoglobin* 13.5 gm/dL (13.5-17.5); Immature Granulocytes Pct Auto 0.4 %; Lymphocytes Percent Auto 11.4 % (20-44); Mean Corpuscular HGB Conc 34 gm/dL (32-36); Mean Corpuscular Hemoglobin 30 pg (26-34); Mean Corpuscular Volume 86 fL (80-100); Monocytes Percent Auto 8.9 % (0.0-11.0); Neutrophils Percent Auto 78.9 % (42.0-72.0); Platelet Count* 103 K/uL (140-440); RDW Coefficient of Variation % 12.8 % (11.5-15.5); Red Blood Count 4.58 m/uL (4.30-5.90); White Blood Count* 12.98 K/uL (4.50-11.00)
[2024-12-01 07:33] LABS: Slide Review Reflex No
[2024-12-01 07:38] VITALS: BP 102/61; PULSE 59; RESP 18; O2SAT 96
[2024-12-01 07:43] LABS: Albumin* 3.9 g/dL (3.3-5.0); Chloride* 109 mmol/L (96-114); Potassium* 3.3 mmol/L (3.6-5.1); Sodium* 137 mmol/L (135-149)
[2024-12-01 07:45] LABS: Blood Urea Nitrogen* 13 mg/dL (7-30); Creatinine* 0.9 mg/dL (0.5-1.5); Est. Creatinine Clearance* 61.51; Estimated Glomerular Filt Rate 90 ml/min
[2024-12-01 07:46] LABS: Alanine Aminotransferase* 16 U/L (4-50); Alkaline Phosphatase* 57 U/L (40-150); Anion Gap 7 mEq/L (7-15); Aspartate Amino Transferase* 25 U/L (12-35); Bilirubin Total* 0.8 mg/dL (0.1-1.5); Carbon Dioxide* 21 mmol/L (20-32)
[2024-12-01 07:47] LABS: Calcium* 9.1 mg/dL (8.4-10.6); Glucose* 118 mg/dL (60-115); Total Protein* 6.7 g/dL (6.0-8.3)
[2024-12-01] MEDS: ERTAPENEM 1 GM in 0.9 % SODIUM CHLORIDE Mini-bag 100 ML IVPB (07:52)
[2024-12-01 07:54] VITALS: TEMP 37.2
[2024-12-01 08:00] VITALS: BP 107/63; PULSE 54; O2SAT 98
[2024-12-01 08:07] LABS: PCR FLU A Negative PCR FLU A (Negative); PCR FLU B Negative PCR FLU B (Negative); PCR RSV Negative PCR RSV (Negative); SARS PCR* Negative SARS-CoV-2 (Negative)
[2024-12-01 08:14] LABS: C Reactive Protein* 16.1 mg/dL (0.5-1.0)
== END 2024-12-01 08:37 | disposition home or self-care (01) ==
LOC: ED 08:09
PROVIDERS: Emergency Provider Family Medicine; PCP Family Medicine
DX: N39.0 Urinary tract infection, site not specified (principal); Z16.12 Extended spectrum beta lactamase (ESBL) resistance
CPT/HCPCS: 36415; 71046; 80053; 81001; 83605; 85025; 86140; 87040; 87086; 87631; 96365; 99284; J1335; J7030

== ENCOUNTER 2024-12-07 08:30 | Outpatient (RCR) | payer MEDICARE, BC, SELFPAY ==
[2024-12-02 08:20] VITALS: BP 128/73; PULSE 52; RESP 16; O2SAT 98
[2024-12-02] MEDS: ERTAPENEM 1 GM in 0.9 % SODIUM CHLORIDE Mini-bag 100 ML IVPB (08:36)
[2024-12-02 08:40] VITALS: TEMP 36.6
[2024-12-03 07:55] VITALS: BP 125/67; PULSE 57; TEMP 36.3; O2SAT 99
[2024-12-03] MEDS: ERTAPENEM 1 GM in 0.9 % SODIUM CHLORIDE Mini-bag 100 ML IVPB (08:16)
[2024-12-04 09:00] VITALS: BP 141/72; PULSE 61; RESP 16; TEMP 36.8; O2SAT 100
[2024-12-04] MEDS: SODIUM CHLORIDE 0.9 % (FLUSH) 10 ML SYRINGE 5 ML IVF (09:02)
[2024-12-04] MEDS: ERTAPENEM 1 GM in 0.9 % SODIUM CHLORIDE Mini-bag 100 ML IVPB (09:03)
[2024-12-05] MEDS: ERTAPENEM 1 GM in 0.9 % SODIUM CHLORIDE Mini-bag 100 ML IVPB (08:52)
[2024-12-05 09:36] VITALS: BP 116/67; PULSE 54; RESP 18; O2SAT 96
[2024-12-06 08:22] VITALS: BP 143/66; PULSE 63; RESP 12; TEMP 36.5; O2SAT 100
[2024-12-06] MEDS: SODIUM CHLORIDE 0.9 % (FLUSH) 10 ML SYRINGE 5 ML IVF (08:43)
[2024-12-06] MEDS: ERTAPENEM 1 GM in 0.9 % SODIUM CHLORIDE Mini-bag 100 ML IVPB (08:43)
[2024-12-07 08:36] VITALS: BP 147/64; PULSE 60; TEMP 36.3; O2SAT 100
[2024-12-07] MEDS: ERTAPENEM 1 GM in 0.9 % SODIUM CHLORIDE Mini-bag 100 ML IVPB (08:44)
[2024-12-07] MEDS: SODIUM CHLORIDE 0.9 % (FLUSH) 10 ML SYRINGE 5 ML IVF (08:48)
== END 2025-05-31 23:59 | disposition home or self-care (01) ==
LOC: CCIC 08:30
PROVIDERS: PCP Family Medicine; Referring Provider Family Medicine; Visit Provider Clinical Nurse Specialist
DX: N39.0 Urinary tract infection, site not specified (principal); Z16.12 Extended spectrum beta lactamase (ESBL) resistance
CPT/HCPCS: 96365; G0463; J1335

== ENCOUNTER 2024-12-23 11:58 | Outpatient (CLI) | payer MEDICARE, BC, SELFPAY | END 2024-12-23 11:59 | disposition home or self-care (01) | LOC: NFLDREF 12-24 09:00 | PROVIDERS: PCP Family Medicine; Referring Provider Family Medicine; Visit Provider Physician Assistant | DX: R31.9 Hematuria, unspecified (principal); N39.0 Urinary tract infection, site not specified | CPT/HCPCS: 87086 ==

== ENCOUNTER 2025-01-20 02:15 | Emergency (ER) | payer MEDICARE, BC, SELFPAY ==
--- OUTSIDE RECORDS SUMMARY | 2025-01-17 13:30 | XMS_ITS | Encounter Summary ---
Author Organization [facility] Address [address] [place] [address] Care Team Providers Care Quality Assurance Qa Lab Technician Name Role Phone Akash Barnard MD Primary Care Provider Reason for Referral * Radiology Services (Routine) - Authorized Specialty Diagnoses / Procedures Referred By Contac t Referred To Contact Imaging Outside Facility Diagnoses Chronic migraine with aura without status migrainosus, not intractable Increased frequency of headaches Marquis Lundberg APRN, PYROMETER MECHANIC [address] [place] [address] [place] [id number] Phone: tel: fax: Referral ID Status Reason Start Date Expiration Date V isits Requested Visits Authorized [id number] Authorized 01/17/2025 1 1 Comments MRI Brain without contrast MRA HEAD without contrast MRA cervical vessels without contrast Reason for Visit * Reason Comments Consultation Headaches Encounter Details Date Type Department Care Team (Late st Contact Info) Description 01/17/2025 1:30 PM CDT Office Visit [facility] - [address] [place] [phone] Marquis Lundberg APRN, PYROMETER MECHANIC [address] [place] [phone] Chronic migraine with aura without status migrainosus, not intractable (Primary Dx); Increased frequency of headaches Social History Tobacco Use Types Packs/Day Years Used Date Smoking Tobacco: Every Day Cigarettes 0.3 57 Started: 1968 Cigars Smokeless Tobacco: Never Tobacco Cessation:Ready to Q uit: No; Counseling Given: Yes Alcohol Use Standard Drinks/Week Comments Yes 1 (1 standard drink = 0.6 oz pur e alcohol) closer to 1-2 per month Sex and Gender Information Value Date Recorded Sex Assigned at Not on file Legal Sex Male 9:25 AM CDT Gender Identity Male 12/13/2024 10:04 AM CDT Sexual Orientation Not on file documented as of this encounter Last Filed Vital Signs Vital Sign Reading Time Taken Comments Blood Pressure 148/87 01/17/2025 3:14 PM CDT Pulse 72 01/17/2025 3:14 PM CDT Temperature - - Respiratory Rate - - Oxygen Saturation - - Inhaled Oxygen Concentration - - Weight - - Height - - Body Mass Index - - documented in this encounter Patient Instructions * Patient Instructions* Marquis Lundberg APRN, CNP - 01/17/2025 1:30 PM CDT [place] MRI Brain w/o contrast, MRA head, MRA cervical vessels w/o contrast FU in 6 weeks documented in this encounter Progress Notes * Marquis Lundberg APRN, CNP - 01/17/2025 1:30 PM CDT Images from the original note were not included. [facility] [address] [place], [address] [id number] Neurology Initial Note / Consultation Chief Complaint: Consultation (Headaches) History of Present Illness: HPI: Maykel Gasca is a 74 y.o. male who presents for a neurological consultation for evaluation of headaches at the request of Akash Barnard MD. Reports a history of migraines since age 16. The headaches have recently been occurring in clusters, with two to three distinct headaches in one day. The most recent headache occurred this morning, and the one prior was two weeks ago. The pain is located in the back of the head and radiates all theway around. The quality is described as a constant presence that is exacerbated by any motion. On a1-10 severity scale, the pain is rated as a 10. The headaches are preceded by a visual aura that lasts for approximately 20 minutes. The aura begins as a cocopah in both eyes and expands, causing significant visual obstruction at its half-way point. The headaches are severe enough to cause him to seek a dark, quiet place. The associated nausea has recently been severe enough to cause him to stand by the toilet, anticipating emesis. The frequency of both headaches and auras has increased over the last two to three years. Associated symptoms include significant nausea, which has been present with the last three migraines. He also experiences phonophobia. He had some dizziness with the headache this morning, which is not a typical feature. Neck tension radiating from the base of the neck, up and around the head to the shoulders is also present with the headaches. He denies photophobia, eye redness, swelling, or tearing. He denies any numbness, tingling, or weakness. He denies restless legs. He reports some worsening of pain with coughing or sneezing but not with bowel movements. He has had rare episodes of prolonged sneezing lasting 15-20 minutes. The headaches are worsened by any physical motion, weather changes (specifically drops or rises in barometric pressure), and loud sounds. They are alleviated by Imitrex, although sometimes two to three tablets are required. Maykel also attempts to manage them by taking aspirin, Tylenol, or ibuprofenat the onset of an aura. If these are not effective and the headache becomes severe, he will then take Imitrex. Lying down in a dark, quiet room with a mask over his eyes also provides relief. Triggers such as caffeine and chocolate have been trialed without a discernible link to headache onset. He reports that taking Topamax earlier in the morning seems to stretch out the time between headaches. Has previously used Imitrex injections, which were effective. He was also on propranolol, which he believes lost effectiveness over time. Ues a CPAP nightly for snoring, with good compliance (99.9%), though it has been interrupted recently by the need to get up for the UTI. Sleeps six to eight hours per night. Family history of migraines in his father. Previous preventive medications: 1. Topamax-contraindicated d/t hx of kidney stones 2. Propanolol- lost effectiveness Previous abortive medications: 1. Imitrex-currently taking Past Medical History: Past Medical History: Diagnosis Date Migraine Musculoskeletal disease Sleep apnea Past Surgical History: Past Surgical History: Procedure Laterality Date HX EYE SURGERY HX ORTHOPEDIC SURGERY HX UROLOGY SURGERY Medications: Current Outpatient Medications: Medication Sig amLODIPine (NORVASC) 10 mg oral tablet Take 1 tablet (10 mg) by mouth Daily. cholecalciferol (VITAMIN D3) 25 mcg (1,000 unit) oral Cap CPAP rimegepant (NURTEC ODT) 75 mg oral TbDL Take 1 tablet by mouth every other day for migraine prevention. Topamax, propanolol ineffective SUMAtriptan succinate (IMITREX) 100 mg oral tablet Take one tablet by mouth at onset of a headache/aura. May repeat once after 2 hours. Maximum dose 200 mg/24 hours. SUMAtriptan succinate (IMITREX) 25 mg oral tablet Take 1 tablet (25 mg) by mouth twice a day as needed. Allergy: Lisinopril, Clindamycin, Ciprofloxacin, Hydrochlorothiazide, Meloxicam, Sulfamethoxazole-trimethoprim, Trimethoprim, and Varenicline Family History: No family history on file. Social History: Social History Socioeconomic History Marital status: Spouse name: Not on file Number of children: Not on file Years of education: Not on file Highest education level: Not on file Occupational History Not on file Tobacco Use Smoking status: Every Day Current packs/day: 0.25 Average packs/day: 0.3 packs/day for 57.0 years (14.2 ttl pk-yrs) Types: Cigars, Cigarettes Start date: 1968 Smokeless tobacco: Never Vaping Use Vaping status: Never Used Substance and Sexual Activity Alcohol use: Yes Alcohol/week: 1.0 standard drink of alcohol Types: 1 Shots of liquor per week Comment: closer to 1-2 per month Drug use: Never Sexual activity: Not Currently Partners: Female control/protection: Vasectomy Other Topics Concern Abusive Relationship Concern No Guns In Home Yes Caffeine Use Concern No Diet Concern No Exercise Concern No Bike Helmet Use Yes Seat Belt Use Yes Social History Narrative Not on file Social Drivers of Health Financial Resource Strain: Low Risk (02/05/2024) Received from [facility] Financial Resource Strain Difficulty of Paying Living Expenses: 3 Difficulty of Paying Living Expenses: Not on file Food Insecurity: No Food Insecurity (02/05/2024) Received from [facility] Food Insecurity Do you worry your food will run out before you are able to buy more?: 1 Transportation Needs: No Transportation Needs (02/05/2024) Received from [facility] Transportation Needs Does lack of transportation keep you from medical appointments?: 1 Does lack of transportation keep you from work, meetings or getting things that you need?: 1 Physical Activity: Not on file Stress: Not on file Social Connections: Socially Integrated (02/05/2024) Received from [facility] Social Connections Do you often feel lonely or isolated from those around you?: 0 Intimate Partner Violence: Not on file Housing Stability: Low Risk (02/05/2024) Received from [facility] Housing Stability What is your housing situation today?: 1 Review of System: ROS: Pertinent positive and negative systems are described in the HPI; the remainder of the 14 systems are negative. Physical Exam: BP (!) 148/87 (BP Cuff Site: Right arm, BP Cuff Position: Sitting, BP Cuff Size: Adult) Pulse 72 Patient was well groomed and appeared of appropriate age. HEENT: Pupils were equal and reactive to light and accommodation. Extraocular movements were intact. No mucosal congestion. Neck: The neck was supple. There were myofascial tender points in the paracervical, trapezius, and levator scapula areas, L side > R. No carotid bruits. Chest: Air entry was present bilaterally. Chest was clear to auscultation. Heart: S1-S2, regular rate and rhythm. No murmurs. Neurological examination: Higher mental functions: The patient was awake alert and oriented x3. Speech and language functionswere normal. Cranial nerves examination: Pupils were equal and reactive to light and accommodation. Extraocular movements were intact. The optic disc was normal. There was no papilledema. There was no disconjugate gaze. There were no facial sensory deficits. There was no facial asymmetry. The shoulder shrug wasnormal. The tongue and uvula were in the midline. CN II- XII normal. Motor examination: The tone was normal. There is no pronator drift. The strength in the proximal and distal muscle groups in both upper and lower extremities was normal at 5/5. Reflexes were 2/5 bilaterally symmetrical in both upper and lower extremities. The toes were downgoing. Sensory examination: The light touch, pinprick, joint position, vibration and temperature sensations were normal. Coordination: Finger to nose and heel to sanchez testing were normal. There was no dysmetria. No dysdiadochokinesia. Gait: The patient walked with a narrow-based gait. There was no gait ataxia. Romberg's test was negative. Tandem, heel and toe walking were normal. IMAGING: I have personally reviewed images. Assessment and Plan: Maykel Gasca is a pleasant, right-handed 74 y.o. male who presents for a neurological consultation for evaluation of headaches Normal neurological exam without evidence of secondary headache. Assessment: - Chronic migraine with aura, with recent worsening in frequency and severity. Plan: - Investigations planned: An MRI and MRA of the brain will be ordered to evaluate for structural orvascular abnormalities given the increasing frequency of headaches and auras at his age. - Treatment planned: - Stop Topamax immediately due to the history of kidney stones. - Start Nurtec ODT (rimegepant) 75 mg every other day for migraine prevention. A prior authorization will be submitted to [facility]. Samples will be provided to start. - Increase sumatriptan dose to 100 mg tablets, to be taken at the onset of aura or headache. He canrepeat the dose in two hours if needed, with a maximum of 200 mg in 24 hours. Prescription sent to [facility] in [place]. - Counselling provided on migraine pathophysiology, non-pharmacological migraine management, including maintaining a regular sleep schedule, consistent meals, stress management, adequate hydration, and regular exercise. He was provided with a list of common dietary triggers to review. The potentialbenefit of vitamin B2 (200 mg daily) and magnesium glycinate (250 mg twice daily) was discussed. The importance of using abortive medication like sumatriptan at the earliest sign of a migraine, rather than relying on skol-mgm-jvcecla analgesics, was emphasized to avoid medication-overuse headaches.He was advised to download and use the Migraine Enoc osbaldo to track headaches and identify triggers.The possibility of physical therapy for myofascial release was discussed but deferred due to the current shoulder issue. - Follow-up scheduled in six weeks to review imaging results and assess response to the new treatment regimen. He was advised that the specialty pharmacy will call him to arrange for medication delivery. MIPS MIPS 2024: Documentation of current mediations reviewed every visit 2. Does patient use tobacco? No 3. Patient has had no falls in calendar year 4. Does patient have Dementia? No TIME: I spent 60 minutes on the date of the encounter with this patient consisting of activities before, during, and after the encounter including time spent: Preparing to see the patient including review of the chart, tests, and/or outside records. Reviewing and verifying information regarding the chief complaint and history already recorded by ancillary staff and/or the patient. Obtaining history and performing medically appropriate evaluation. Counseling the patient regarding the diagnosis, additional diagnostic considerations, possible diagnostic testing, and any potential options for therapy, including conservative/lifestyle measures andpharmacotherapy including risks/benefits, side effects, and adverse effects. I also counseled the patient on how to contact me with any questions or concerns, new or worsening symptoms. Ordering medications, tests, and/or procedures, and documenting in the chart. MARQUIS LUNDBERG APRN, PYROMETER MECHANIC Neurology documented in this encounter Plan of Treatment Scheduled Referrals Name Type Priority Associated Diagnoses Orde r Schedule REFERRAL IMAGING - OUTSIDE FACILITY Referral Routine Chronic migraine with aura without status migrainosus, not intractable Increased frequency of headaches Ordered: 01/17/2025 documented as of this encounter Visit Diagnoses Diagnosis Chronic migraine with aura without status migrainosus, not intractable- Primary Increased frequency of headaches Headache documented in this encounter Care Teams Quality Assurance Qa Lab Technician Relationship Specialty Start Date End Date Akash Barnard MD [address] [place] [address] PCP - General Family Medicine 12/13/24 documented as of this encounter
[2025-01-20] VITALS (8 sets, daily range): BP systolic 109–125; BP diastolic 64–80; PULSE 54–75; RESP 14–18; TEMP 37.2–37.6; O2SAT 92–96; BMI 26.3
--- OUTSIDE RECORDS SUMMARY | 2025-01-20 02:18 | XMS_ITS | Encounter Summary ---
Author Organization [facility] Address [address] [place] [id number] Care Team Providers Care Tower Hand Name Role Phone Akash Barnard MD Primary Care Provider Encounter Details Date Type Department Care Team (Latest Contact Info) Description 01/17/2025 Travel Social History Tobacco Use Types Packs/Day Years Used Date Smoking Tobacco: Every Day Cigarettes 0.3 57 Started: 1968 Cigars Smokeless Tobacco: Never Alcohol Use Standard Drinks/Week Comments Yes 1 (1 standard drink = 0.6 oz pur e alcohol) closer to 1-2 per month Sex and Gender Information Value Date Recorded Sex Assigned at Not on file Legal Sex Male 9:25 AM CDT Gender Identity Male 12/13/2024 10:04 AM CDT Sexual Orientation Not on file documented as of this encounter Plan of Treatment Not on file documented as of this encounter Visit Diagnoses Not on filedocumented in this encounter Care Teams Tower Hand Relationship Specialty Start Date End Date Akash Barnard MD [address] [place] [address] PCP - General Family Medicine 12/13/24 documented as of this encounter
--- OUTSIDE RECORDS SUMMARY | 2025-01-20 02:18 | XMS_ITS | Clinical Summary ---
Author Organization [facility] Address [address] [place] [address] Care Team Providers Care Grave Cleaner Name Role Phone Akash Barnard MD Primary Care Provider Allergies Active Allergy Reactions Criticality Noted Date Comments Ciprofloxacin Rash 09/18/2015 Clindamycin Rash Medium 01/16/2011 Hydrochlorothiazide Unknown 09/18/2015 Lisinopril Swelling, lips/tongue,Other High 02/25/2023 Meloxicam Unknown,Vomiting 09/18/2015 Sulfamethoxazole-Trimethoprim Itching,Rash 01/09 Trimethoprim Unknown 01/17/2025 Varenicline Rash 03/24/2012 Medications CPAP Active SUMAtriptan succinate (IMITREX) 25 mg oral tablet Take 1 tablet (25 mg) by mouth twice a day as needed. 05/17/20 24 Active cholecalcifero l (VITAMIN D3) 25 mcg (1,000 unit) oral Cap Activ e amLODIPine (NORVASC) 10 mg oral tablet Take 1 tablet (10 mg) by mouth Daily. 01/05/20 25 Active rimegepant (NURTEC ODT) 75 mg oral TbDL Take 1 tablet by mouth every other day for migraine prevention. Topamax, propanolol ineffective 16 tablet 3 01/18/20 25 Active SUMAtriptan succinate (IMITREX) 100 mg oral tablet Take one tablet by mouth at onset of a headache/aura. May repeat once after 2 hours. Maximum dose 200 mg/24 hours. 12 tablet 3 01/18/20 25 Active topiramate (TOPAMAX) 25 mg oral tablet Take 1 tablet (25 mg) by mouth Daily. 12/10/19 25 025 Discontinued Active Problems Problem Noted Date Diagnosed Date Migraine headache 01/17/2025 Tinnitus 01/17/2025 Retinal detachment 01/17/2025 Overview (01/17/2025): Left eye only Impaired fasting glucose 01/17/2025 Tobacco abuse 02/05/2024 Bilateral lower extremity edema 11/11/2022 Asymptomatic varicose veins of both lower extrem ities 11/11/2022 ARIES (obstructive sleep apnea) 03/22/2019 Rotator cuff tear 07/10/2012 Overview (01/17/2025): right. no surgery. Cellulitis of leg, left 02/22/2011 Colon polyp 06/28/2010 Overview (01/17/2025): Colonoscopy 06/2010 polyp repeat in 3 years Colonoscopy 07/2021 2-TA, repeat in 5 years Essential hypertension 04/18/2010 Encounters Date Type Department Care Team Description 01/17/2025 1:30 PM CDT Office Visit [facility] [address] [place] [address] Maria Guadalupe Ventura, HEAVY DUTY DIESEL MECHANIC, TAN ROOM SUPERVISOR Chronic migraine with aura without status migrainosus, not intractable (Primary Dx); Increased frequency of headaches 01/17/2025 Travel from Last 3 Months Immunizations Immunization Administration Dates Next Due Influenza Adjuvanted (Fluad Quadrivalent PF) 03/20/2021 Influenza Adjuvanted (Fluad Trivalent PF) 04/27/2024,06/15/2019,03/17/2018 Influenza High Dose (Fluzone Quadrivalent PF) 05/11/2022,04/10/2020 Influenza split virus (Fluzo ne Quadrivalent PF) 06/13/2015,06/22/2014 Influenza split virus (Fluzo ne Trivalent PF) 04/12/2009 Influenza split virus trivalent 05/26/20 13,03/24/2012,03/08/2011,2009,08/03/2008,04/22/2007,04/22/2003 Moderna 12+Yrs mRNA Spikevax COVID Vaccine Seasonal 04/27/2024 Pfizer 12+ Yrs Bivalent COVI D Vaccine (boyd cap) 10/21/2022 Pfizer 12+ Yrs Monovalent CO VID Vaccine (boyd cap) 10/18/2021 Pfizer 12+ Yrs Monovalent CO VID Vaccine (purple cap) 03/20/2021,09/03/2020,08/13/2020 Pneumococcal PCV13 09/12/2016 Pneumococcal PCV20 02/05/2024 Pneumococcal PPSV23 03/17/2018 Td adult absorbed PF (2 Lf) 11/07/2006, 7,06/09/1993 Tdap 10/24/2022,03/08/2011 Varicella 03/24/2012 Social History Tobacco Use Types Packs/Day Years [...] AM CDT Sexual Orientation Not on file Last Filed Vital Signs Vital Sign Reading Time Taken Comments Blood Pressure 148/87 01/17/2025 3:14 PM CDT Pulse 72 01/17/2025 3:14 PM CDT Temperature - - Respiratory Rate - - Oxygen Saturation - - Inhaled Oxygen Concentration - - Weight - - Height - - Body Mass Index - - Plan of Treatment Health Maintenance Due Date Last Done Comments AAA Ultrasound Screening 1950 Colonoscopy 1950 Lipid Screening 1950 Depression Assessment (PHQ-2) 01/19/1952 Yearly Review of HCD 2001 Zoster Vaccine (1 of 2) 05/19/2012 03/24/2012 COVID-19 Vaccine ( season) 2024 04/27/2024, 10/21/2022, 10/18/2021, Additional history exists Medicare Wellness Visit 02/04/2025 02/05/20 24, 10/21/2022, 10/18/2021, Additional history exists Influenza Vaccine (#1) 2025 4, 05/11/2022, 03/20/2021, Additional history exists RSV Vaccines (1 - 1-dose 75+ series) 2026 Adult Tetanus Booster 10/24/2032 10/24/2022 , 03/08/2011, 11/07/2006, Additional history exists Hepatitis C Screening Completed 06/24/2014 Pneumococcal 50+ Years Completed 4, 03/17/2018, 09/12/2016 Meningococcal B Vaccine Aged Out No l onger eligible based on patient's age to complete this topic Insurance [facility] Care Teams Grave Cleaner Relationship Specialty Start Date End Date Akash Barnard MD [address] [place] [address] PCP - General Family Medicine 12/13/24
--- OUTSIDE RECORDS SUMMARY | 2025-01-20 02:18 | XMS_ITS | Clinical Summary ---
Author Organization [employer] [facility] Address [address] [place] [address] Care Team Providers Care Supervisor Telephone Clerks Name Role Phone Akash Barnard MD Primary Care Provider Allergies Active Allergy Reactions Criticality Noted Date Comments Sulfamethoxazole-Trimethoprim Rash,Itching 01/09 Varenicline Rash 03/24/2012 Ciprofloxacin Rash 09/18/2015 Clindamycin Rash Medium 01/16/2011 Hydrochlorothiazide *Unknown 09/18/2015 Lisinopril Angioedema 02/25/2023 Meloxicam GI Upset 09/18/2015 Medications cholecalciferol (VITAMIN D) 1,000 unit capsule Take 1 capsule by mouth once daily. 0 08/10/19 11 Active diphenhydrAMINE (BENADRYL) 25 mg capsule Take 1 capsule by mouth every 6 hours if needed. 0 08/11/19 14 Active ibuprofen (ADVIL; MOTRIN) 200 mg tablet Every 6 Hours as needed Active latanoprost (XALATAN) 0.005 % ophthalmic solution INSTILL 1 DROP IN BOTH EYES EVERY EVENING 01/04/20 21 Active diclofenac topical (VOLTAREN) 1 % gelIndications: Acute pain of left knee Apply 2 g topically to affected area(s) four times daily. 150 g 2 04/27/20 24 Active SUMAtriptan (IMITREX) 25 mg tabletIndicatio ns:Migraine with aura and without status migrainosus, not intractable TAKE 1 TABLET (25 MG) BY MOUTH 2 TIMES DAILY IF NEEDED FOR MIGRAINE. GIVE AT MINIMUM 2HRS APART. MAX DOSE: 200MG PER 24HRS. 10 Tablet 3 05/17/20 24 Active CPAPIndications :ARIES (obstructive sleep apnea) CPAP (E0601) machine for home use at pressure: 10cm , Choice of mask (A7030 or A7034) w/full face cushion (A7031) x1-2/mo, nasal cushion (A7032) x2/mo, or nasal pillows (A7033) x 2/mo; Length of Need: 99 months; Frequency of use: Daily 1 Each 11 11/12/19 25 Active topiramate 25 mg tabletIndicatio ns:Migraine with aura and without status migrainosus, not intractable Take 1 Tablet (25 mg) by mouth once daily. 90 Tablet 12/10/19 25 Active amLODIPine (NORVASC) 10 mg tabletIndicatio ns:Hypertension , unspecified type TAKE 1 TABLET BY MOUTH EVERY DAY 90 Tablet 3 01/05/20 25 Active methylPREDNISol one (Medrol (Michele)) 4 mg tabletIndicatio ns:Chronic right shoulder pain Take by mouth as instructed per packaging. 21 Tablet 01/15/20 25 Active oxyCODONE (ROXICODONE) 5 mg immediate release tabletIndicatio ns:Chronic right shoulder pain Take 1 Tablet (5 mg) by mouth every 8 hours if needed for Pain. 10 Tablet 01/19/20 25 Active nicotine 21 mg/24 hr (NICODERM; HABITROL) 21 mg/24 hr patchIndication s:Tobacco abuse Apply 1 Patch on dry, clean, hairless skin once daily. 42 Patch 1 01/20/20 25 Active amLODIPine (NORVASC) 10 mg tabletIndicatio ns:Hypertension , unspecified type TAKE 1 TABLET BY MOUTH EVERY DAY 90 Tablet 2 04/12/20 24 025 Discontinued Active Problems Problem Noted Date Diagnosed Date Chronic right shoulder pain 01/19/2025 Tobacco abuse 02/05/2024 Bilateral lower extremity edema [...] Encounters Date Type Department Care Team Description 01/19/2025 1:05 PM CDT Ancillary Procedure [facility] [address] [place] [phone] Arrived 01/19/2025 1:00 PM CDT Office Visit [facility] [address] [place] [phone] Mio Torres MD Follow Up (Right Shoulder) 01/19/2025 Telephone [facility] [address] [place] [phone] Mio Torres MD Appointment (01/26/25 at 8 am ) 2025 Travel 01/14/2025 10:15 AM CDT Ancillary Procedure [facility] [address] [place] [address] 01/14/2025 9:05 AM CDT Office Visit [facility] [address] [place] [address] Gladys Frey MD Shoulder Pain/problem (Right shoulder, getting worse) 01/13/2025 Travel 01/02/2025 Refill [facility] [address] [place] [address] Akash Barnard MD Refill Request (Amlodipine) 12/30/2024 11:45 AM CDT Orders Only [facility] [address] [place] [address] Lab, [place] <No scans attached> 12/30/2024 Travel 12/26/[address] [facility] [place] [facility] [address] [place] [address] Cristian Adames MD Refill Request (Sumatriptan) 12/23/2024 Orders Only [facility] Scanner 1 scan: (1-Ord) [place], URINE CULTURE, 12/23/2024 12/23/2024 Orders Only [facility] Scanner 1 scan: (1-Ord) [place] URINALYSIS, 12/23/2024 12/23/2024 Telephone [place] [id number] [address] Skylar Chopra MD Urine Culture Growth 12/09/2024 11:50 AM CDT Office Visit [facility] [address] [place] [address] Akash Barnard MD Follow Up (12/01/24 Pyelonephritis Feeling better/) 12/08/2024 Travel 12/07/2024 Orders Only [facility] Scanner 1 scan: (1-Ord) [facility] MULTIPLE LABS, 12/07/2024 12/06/2024 Telephone [facility] [address] [place] [address] Akash Barnard MD Appointment (ER follow up for UTI) 12/01/2024 Orders Only [facility] Scanner 1 scan: (1-Ord) [facility], MULTIPLE RESULTS, 12/01/2024 11/25/2024 Telephone [facility] [address] [place] [phone] Jenny Hinds PA DME Supply (cpap compliance) 11/11/2024 7:15 AM CDT Telemedicine [facility] [address] [place] [address] Jenny Hinds PA 11/07/2024 Orders Only [facility] Scanner 1 scan: (1-Ord) [facility], COMPLIANCE REPORT, 11/07/2024 10/22/2024 Refill [facility] [address] [facility] [address] [place] [address] Mony Fernandez MBBS Refill Request [...] AM CDT Legal Sex Male 5:26 AM PRIVATE ADVISOR Gender Identity Male 01/15/2021 11:31 AM CDT Sexual Orientation Straight 01/15/2021 11 :31 AM CDT 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 Not on file Not on f ile Obstetrics History Last Filed Vital Signs Vital Sign Reading Time Taken Comments Blood Pressure 148/72 01/14/2025 9:19 AM CDT Pulse 58 01/14/2025 9:19 AM CDT Temperature 36.5 C (97.7 F) 12/09/2024 11:53 AM CDT Respiratory Rate 16 02/12/2011 3:33 PM CDT Oxygen Saturation 99% 01/14/2025 9:19 AM CDT Inhaled Oxygen Concentration - - Weight 81.1 kg (178 lb 12.8 oz) 01/14/2025 9:19 AM CDT Height 172.7 cm (5' 8) 04/27/2024 9:19 AM PRIVATE ADVISOR Body Mass Index 27.19 04/27/2024 9:19 AM PRIVATE ADVISOR Plan of Treatment Upcoming Encounters Date Type Department Care Team (Late st Contact Info) Description 01/26/2025 8:00 AM CDT Office Visit [facility] [address] [place] [address] Radha Reyna PA [address], [place] [phone] Health Maintenance Due Date Last Done Comments Zoster (shingles) series for age 50+ (1 of 2) 2001 AAA screening age 65-74 01/19/2016 COVID-19 vaccine series ( season) 2024 04/27/2024, 10/21/2022, 10/18/2021, Additional history exists Depression screening for age 12+ 02/04/2025 02/05/2024, 10/21/2022, 10/18/2021, Additional history exists Medicare Wellness for age 65+ 02/05/2025 02/05/2024, 10/21/2022, 10/18/2021, Additional history exists Influenza Vaccine (#1) 2025 , 03/20/2021, 06/15/2019, Additional history exists BMI (ht and wt [...] C screening for age 18-79 Completed 06/24/2014 Pneumococcal series for age 50+ Completed 02/05/2024, 03/17/2018, 09/12/2016 Hepatitis B series for 19+ Aged Out N o longer eligible based on patient's age to complete this topic Procedures Procedure Name Priority Date/Time Associated Diagnosis Comments XR SHOULDER 3 VIEWS RIGHT Routine 01/14/2025 10:11 AM CDT Chronic right shoulder pain Tear of right rotator cuff, unspecified tear extent, unspecified whether traumatic URINALYSIS MACROSCOPIC - [facility] ONLY POC DIP ([facility]) Routine 12/30/2024 12:02 PM CDT Dysuria URINALYSIS MICROSCOPIC Routine 12/30/2024 12:01 PM CDT Dysuria URINE CULTURE Routine 12/30/2024 12:01 PM CDT Dysuria SCAN-PATHOLOGY REPORT 12/23/2024 12:00 AM CDT SCAN-LABORATORY REPORT 12/23/2024 12:00 AM CDT BASIC METABOLIC PANEL Routine 12/09/2024 12:18 PM CDT Hypokalemia CBC WITH AUTO DIFFERENTIAL Routine 12/09/2024 12:18 PM CDT Low platelet count SCAN-LABORATORY REPORT 12/07/2024 12:00 AM CDT SCAN-PATHOLOGY REPORT 12/01/2024 12:00 AM CDT SCAN-DIAGNOSTIC REPORT 11/07/2024 12:00 AM CDT LIPID PANEL W REFLEX MEASURED LDL Routine 10/18/2021 4:31 PM CDT Lipid screening COLONOSCOPY SCREENING Routine 07/26/2021 7:26 AM PRIVATE ADVISOR History of colon polyps ANTI HCV Routine 06/24/2014 3:22 PM PRIVATE ADVISOR Need for hepatitis C screening test from Last 3 Months or Most Recently Relevant to Health Maintenance Results * XR SHOULDER 3 VIEWS RIGHT (01/14/2025 10:11 AM CDT) Anatomical Region Laterality Modality SHOULDERS, SHOULDER R Computed R adiography 01/14/2025 7:39 PM CDT Narrative 01/14/2025 7:39 PM CDT For Patients: As a result of the Cures Act, medical imaging exams and procedure reports are released immediately into your electronic medical record. You may view this report before your referring provider. If you have questions, please contact your health care provider. Indication: Right shoulder pain. Technique: Right shoulder 3 views. Comparison: 06/06/2012 Findings: Narrowing and spurring at the glenohumeral and acromioclavicular joints. Subacromial spur. Decreased humeral acromial distance. Intact visualized ribs. Impression: Glenohumeral and acromioclavicular degenerative joint disease, progressed since the prior study. Chronic impingement. Dictated by Andrés Godfrey MD @ 01/14/2025 7:39:11 PM (Electronically Signed) Procedure Note Andrés Godfrey MD - 01/14/2025 For Patients: As a result of the Century Cures Act, medical imagingexams and procedure reports are released immediately into your electronicmedical record. You may view this report before your referring provider.If you have questions, please contact your health care provider. Indication: Right shoulder pain. Technique: Right shoulder 3 views. Comparison: 06/06/2012 Findings: Narrowing and spurring at the glenohumeral and acromioclavicular joints.Subacromial spur. Decreased humeral acromial distance. Intact visualizedribs. Impression: Glenohumeral and acromioclavicular degenerative joint disease, progressedsince the prior study. Chronic impingement. Dictated by Andrés Godfrey MD @ 01/14/2025 7:39:11 PM (Electronically Signed) us Gladys Frey MD GENERAL IMAGING Final Resul t * POCT Urinalysis Dipstick Only [[id number]] (12/30/2024 12:02 PM CDT) PH 7.5 5.0 - 8.0 [facility] SPECIFIC GRAVITY 1.020 1.001 - 1.035 [facility] GLUCOSE NEGATIVE NEGATIVE [facility] BILIRUBIN NEGATIVE NEGATIVE [facility] KETONES NEGATIVE NEGATIVE [facility] OCCULT BLOOD NEGATIVE NEGATIVE [facility] PROTEIN NEGATIVE NEGATIVE [facility] NITRITE NEGATIVE NEGATIVE [facility] LEUKOCYTE ESTERASE NEGATIVE NEGATIVE [facility] Urine URINE SPECIMEN / Unknown 12/30/2024 12:02 PM CDT 12/30/2024 12:03 PM CDT us Akash Barnard MD URINE Final Result [facility] [address] [place] [address], [place] [phone] [facility] [address] [place] [address] * URINALYSIS MICROSCOPIC [23598.1] - routine (12/30/2024 12:01 PM CDT) RBC 0-2 0-2, None Seen /HPF 12/30/2024 10:59 PM CDT [facility] WBC 0-2 0-2, 3-5, None Seen /HPF 12/30/2024 10:59 PM CDT [facility] BACTERIA None Seen None Seen, Rare, Few Bacteria/ HPF 12/30/2024 10:59 PM CDT [facility] EPITHELIAL CELLS None Seen None Seen, Few Epi/HPF 12/30/2024 10:59 PM CDT [facility] HYALINE CASTS 0-2 0-2, 3-5 /LPF 12/30/2024 10:59 PM CDT [facility] Urine URINE SPECIMEN / Unknown Non-Blood / Unknown 12/30/2024 12:01 PM CDT 12/30/2024 12:02 PM CDT us Akash Barnard MD URINE Final Result [facility] [address] [address], [place] * URINE CULTURE [13960.2] (12/30/2024 12:01 PM CDT) CULTURE No growth (<1,000 CFU/mL) 01/01/2025 2:51 PM CDT [facility] Urine URINE SPECIMEN / Unknown Non-Blood / Unknown 12/30/2024 12:01 PM CDT 12/30/2024 12:02 PM CDT us Akash Barnard MD MICROBIOLOGY Final Result [facility] [address] [place] [address], [place] * SCAN-PATHOLOGY REPORT (12/23/2024 12:00 AM CDT) Only the most recent of2 resultswithin the time period is included. us Scanner OTHER Final Result * SCAN-LABORATORY REPORT (12/23/2024 12:00 AM CDT) Only the most recent of2 resultswithin the time period is included. us Scanner OTHER Final Result * CBC AND DIFFERENTIAL (12/09/2024 12:18 PM CDT) WHITE BLOOD CELL COUNT 8.0 3.8 - 10.8 Thousand/u L [facility] RED BLOOD CELL COUNT 4.63 4.20 - 5.80 Million/uL [facility] HEMOGLOBIN 13.9 13.2 - 17.1 g/dL [facility] HEMATOCRIT 42.5 38.5 - 50.0 % [facility] MCV 91.8 80.0 - 100.0 fL [facility] MCH 30.0 27.0 - 33.0 pg [facility] MCHC 32.7 32.0 - 36.0 g/dL [facility] Comment: For adults, a slight decrease in the calculated MCHC value (in the range of 30 to 32 g/dL) is most likely not clinically significant; however, it should be interpreted with caution in correlation with other red cell parameters and the patient's clinical condition. RDW 12.9 11.0 - 15.0 % [facility] PLATELET COUNT 225 140 - 400 Thousand/u L [facility] MPV 9.8 7.5 - 12.5 fL [facility] ABSOLUTE NEUTROPHILS 4,808 1,500 - 7,800 cells/uL [facility] ABSOLUTE LYMPHOCYTES 2,248 850 - 3,900 cells/uL [facility] ABSOLUTE MONOCYTES 776 200 - 950 cells/uL [facility] ABSOLUTE EOSINOPHILS 128 15 - 500 cells/uL [facility] ABSOLUTE BASOPHILS 40 0 - 200 cells/uL [facility] NEUTROPHILS 60.1 % [facility] LYMPHOCYTES 28.1 % [facility] MONOCYTES 9.7 % [facility] EOSINOPHILS 1.6 % [facility] BASOPHILS 0.5 % [facility] Blood BLOOD SPECIMEN / Unknown 12/09/2024 12:18 PM CDT 12/09/2024 12:20 PM CDT Akash Barnard MD HEMATOLOGY Final Result [email or web address] [address] [place] [address], [employer] [address] [place] [address] * (ABNORMAL) BASIC METABOLIC PANEL (12/09/2024 12:18 PM CDT) GLUCOSE 104(H) 65 - 99 mg/dL [facility] Comment: Fasting reference interval For someone without known diabetes, a glucose value between 100 and 125 mg/dL is consistent with prediabetes and should be confirmed with a follow-up test. UREA NITROGEN (BUN) 11 7 - 25 mg/dL [facility] CREATININE 0.78 0.70 - 1.28 mg/dL [facility] EGFR 94 > OR = 60 mL/min/1. 73m2 [facility] BUN/CREATININE RATIO SEE NOTE: 6 - 22 (calc) [facility] Comment: Not Reported: BUN and Creatinine are within reference range. SODIUM 140 135 - 146 mmol/L [facility] POTASSIUM 4.1 3.5 - 5.3 mmol/L [facility] CHLORIDE 108 98 - 110 mmol/L [facility] CARBON DIOXIDE 26 20 - 32 mmol/L [facility] ELECTROLYTE BALANCE 6(L) 7 - 17 mmol/L (calc) [facility] CALCIUM 9.4 8.6 - 10.3 mg/dL [facility] Blood BLOOD SPECIMEN / Unknown 12/09/2024 12:18 PM CDT 12/09/2024 12:20 PM CDT us Akash Barnard MD CHEMISTRY Final Result [email or web address] [address] [place] [address], [place] [phone] [facility] [address] [place] [address] * SCAN-DIAGNOSTIC REPORT (11/07/2024 12:00 AM CDT) us Scanner OTHER Final Result * LIPID PANEL W REFLEX MEASURED LDL (10/18/2021 4:31 PM CDT) CHOLESTEROL,TOTAL 173 100 - 199 mg/dL 10/19/2021 4:08 PM CDT [facility] TRIGLYCERIDES 51 <150 mg/dL 10/19/2021 4:08 PM CDT [facility] HDL CHOLESTEROL 42 >40 mg/dL 4:08 PM CDT [facility] NON-HDL CHOLESTEROL 131 <145 mg/dl 10/19/2021 4:08 PM CDT [facility] CHOL/HDL RATIO 4.12 <4.50 10/19/2021 4:08 PM CDT [facility] LDL CHOLESTEROL 121 <=130 mg/dL 10/19/2021 4:08 PM CDT [facility] VLDL CHOLESTEROL 10 <=30 mg/dL 10/19/2021 4:08 PM CDT [facility] PROVIDER ORDERED STATUS RANDOM 10/19/2021 4:08 PM CDT [facility] Blood BLOOD SPECIMEN / Unknown Venipuncture / Unknown 10/18/2021 4:31 PM CDT 10/18/2021 4:31 PM CDT us Akash Barnard MD CHEMISTRY Final Result [facility] [address] [place] [address], [place] * COLONOSCOPY (07/26/2021 7:40 AM PRIVATE ADVISOR) 07/26/2021 7:40 AM PRIVATE ADVISOR Narrative Transcriptions Derrick Garcia MD - 07/26/2021 [...] adequate candidate for conscious sedation. The [id number] was passed through the anus and advanced [...] 7:40 AM Procedure Code(s): --- Professional --- 68695, Colonoscopy, flexible; with removalof tumor(s), polyp(s), or other lesion(s) bysnare technique Diagnosis Code(s): --- Professional --- Z86.010, Personal history of colonicpolyps K63.5, Polyp of colon K62.1, Rectal polyp K57.30, Diverticulosis of large intestine without perforation or abscess withoutbleeding CPT copyright 2020 [employer]. All rights reserved. The codes documented in this report are preliminary and upon motor tune up specialist reviewmay be revised to meet current compliance requirements. Scope In: 8:13:07 AM Scope Withdrawal Time 0 hours 12 minutes 13 seconds Scope Out: 8:30:35 AM us Derrick Garcia MD PROCEDURE ORD Final Res ult * ANTI HCV [05954.2] (06/24/2014 3:22 PM PRIVATE ADVISOR) HEPATITIS C ANTIBODY Non-Reacti ve Non-Reacti ve 06/24/2014 8:08 PM PRIVATE ADVISOR [facility] Blood specimen (specimen) BLOOD SPECIMEN / Unknown Venipuncture / Unknown 06/24/2014 3:22 PM PRIVATE ADVISOR 06/24/2014 3:22 PM PRIVATE ADVISOR Narrative [facility] - 06/24/2014 8:08 PM PRIVATE ADVISOR Antibodies to HCV not detected; does not exclude the possibility of exposure to HCV. us Akash Barnard MD SEND OUTS Final Result [facility] [address] [place] [address], [place] from Last 3 Months or Most Recently Relevant to Health Maintenance Insurance [employer] [place] [address] Care Teams Supervisor Telephone Clerks Relationship Specialty Start Date End Date Akash Barnard MD [address] [place] [address] PCP - General 01/10/06
[2025-01-20 02:29] LABS: Appearance Urine Clear (Clear)
--- NOTE | 2025-01-20 02:54 | CRLHL7_ITS ---
For Patients: As a result of the Cures Act, medical imaging exams and procedure reports are released immediately into your electronic medical record. You may view this report before your referring provider. If you have questions, please contact your health care provider. Indication: Fever. Technique: Two views of the chest. Comparison: Chest x-ray 12/01/2024. Findings/Impression: The heart is not abnormally enlarged. Mediastinal contours are grossly within normal limits. Mild bibasilar atelectasis. No definite confluent airspace opacity. No pleural effusion or pneumothorax. No acute osseous abnormality. Overall no significant change compared to prior chest radiograph. Dictated by Isidoro Tubbs MD @ 01/20/2025 3:18:06 AM (Electronically Signed)
--- NOTE | 2025-01-20 03:00 | ED_ITS ---
HPI - General Adult General Chief complaint: Urogenital Problems, Male Stated complaint: Fever Time Seen by Provider: 01/20/25 02:39 Source: patient and family Mode of arrival: ambulatory Limitations: no limitations History of Present Illness HPI narrative: 75-year-old male presents to the emergency department with generalized weakness, fever at home and general malaise. Also has ongoing right shoulder pain, saw Ortho yesterday and it sounds as though they are working towards surgical management. He is worried that he could have a urinary tract infection again though he has no dysuria or other similar symptoms. It looks like I treated him 6 weeks ago for urinary infection with ESBL. Symptoms resolve without complication. Fever to 100.9 per family at home. No sick contacts. No pertinent travel. No shortness of breath or chest pain, no GI changes, no open sores or wounds. No focal neurological changes. Took 5 mg of oxycodone prior to coming to ED to help with shoulder pain, given by Ortho. Noted to have low- grade fever in triage. No unstable vital signs suspicious for sepsis. Prior ED notes reviewed. Past medical history reviewed. Notable for frequent urinary tract infections, hypertension, recent ongoing issues with right shoulder pain. Does continue to smoke. Allergies to Cipro lisinopril hydrochlorothiazide meloxicam clindamycin and Chantix noted. Prior urine cultures reviewed as well. ROS notable for the fever but otherwise benign times 12 systems. Related Data Home Medications ?Medication ?Instructions ?Recorded ?Confirmed amlodipine 10 mg tablet 10 mg PO DAILY 04/02/2301/07 topiramate 25 mg tablet 25 mg PO DAILY 04/02/2301/07 oxycodone 5 mg tablet 5 mg PO DIRECTED PRN 01/0701/20/25 sumatriptan succinate 100 mg tablet 100 mg PO DIREC UBALDO 01/20/25 01/20/25 Allergies Allergy/AdvReac Type Severity Reaction Status Date / Time lisinopril Allergy Intermediate Swelling Verified 01/20/25 04:21 of Lip/Tongue/Throat ciprofloxacin Allergy Mild Rash Verified 01/20/25 04:21 sulfamethoxazole (From Allergy Mild Rash, Verified 01/20/25 04:21 Bactrim) Itching trimethoprim (From Bactrim) Allergy Mild Rash, Verified 01/20/25 04:21 Itching hydrochlorothiazide Allergy Unknown Verified 01/20/25 04:21 varenicline (From Chantix) AdvReac Intermediate hives Verified 01/20/25 04:21 clindamycin AdvReac Mild Rash Verified 01/20/25 04:21 meloxicam AdvReac Unknown GI Upset Verified 01/20/25 04:21 [facility] Medical History (Updated 01/20/25 @ 04:34 by Hope De La Rosa MD) Sleep apnea ?G47.30 - Sleep apnea, unspecified (ICD-10) Rotator cuff tear ?M75.100 - Unspecified rotator cuff tear or rupture of unspecified shoulder, not specified as traumatic (ICD-10) Hyperlipidemia ?E78.5 - Hyperlipidemia, unspecified (ICD-10) Migraine ?G43.909 - Migraine, unspecified, not intractable, without status migrainosus (ICD-10) Colon polyp ?K63.5 - Polyp of colon (ICD-10) Cellulitis of leg, left ?L03.116 - Cellulitis of left lower limb (ICD-10) Calculus of kidney ?N20.0 - Calculus of kidney (ICD-10) History of ESBL E. coli infection ?Z86.19 - Personal history of other infectious and parasitic diseases (ICD- 10) Smoker ?F17.200 - Nicotine dependence, unspecified, uncomplicated (ICD-10) Pneumonia ?J18.9 - Pneumonia, unspecified organism (ICD-10) Wheeze ?R06.2 - Wheezing (ICD-10) Surgical History (Updated 01/20/25 @ 04:26 by Zaheer Foley RN) H/O vasectomy ?Z98.52 - Vasectomy status (ICD-10) History of nasal septoplasty ?Z98.890 - Other specified postprocedural states (ICD-10) History of hip replacement ?Z96.649 - Presence of unspecified artificial hip joint (ICD-10) History of colonoscopy ?Z98.890 - Other specified postprocedural states (ICD-10) Social History Smoking Status: Current every day smoker Second hand tobacco smoke exposure: No How often do you have a drink containing alcohol: never AUDIT-C Alcohol total score: 0 Non-prescribed substance use: denies use Exam Const: Vital Signs, click to edit/add: Vital Signs - 24 hr 01/20/25 02:30 01/20/25 03:21 01/20/25 03:50 Temperature 99.7 F H 99.7 F H Pulse Rate Pulse Rate [Right Pulse Oximeter] 75 Respiratory Rate 18 Blood Pressure Blood Pressure [Le ft Upper Arm] 125/80 Pulse Oximetry 96 95 Oxygen Delivery Me thod Room Air 01/20/25 04:03 01/20/25 04:13 01/20/25 04:23 Temperature Pulse Rate 54 L 58 L 60 Pulse Rate [Right Pulse Oximeter] Respiratory Rate 14 14 16 Blood Pressure 111/64 116/65 109/71 Blood Pressure [Le ft Upper Arm] Pulse Oximetry 94 93 92 Oxygen Delivery Me thod 01/20/25 04:58 01/20/25 05:13 Temperature 99.0 F 99.0 F Pulse Rate Pulse Rate [Right Pulse Oximeter] 75 Respiratory Rate 16 Blood Pressure Blood Pressure [Le ft Upper Arm] 125/80 Pulse Oximetry Oxygen Delivery Me thod Documenting provider has reviewed patient's vital signs: yes Common normals: no apparent distress and alert General appearance: cooperative, comfortable and well kempt HENMT: Common normals: normocephalic and moist oral mucous membranes Head and scalp: normocephalic Other: Poor dentition with lots of dental caries but no signs of gum swelling or abnormal drainage. Posterior pharynx is normal. Normal facial exam otherwise with no swelling Eye: Common normals: conjunctivae normal General eye: normal appearance of both eyes Conjunctiva: conjunctiva(e) normal Neck & C-Spine: Common normals: full ROM and no lymphadenopathy General: normal visual inspection Chest: Common normals: inspection of chest normal Resp: Common normals: normal respiratory effort, no use of accessory muscles and clear to auscultation bilaterally Effort & inspection: able to speak in complete sentences Auscultation: clear to auscultation bilaterally Cardio: Common normals: regular rate, regular rhythm, S1 normal heart sound, S2 normal heart sound and no murmurs Rate: regular rate Rhythm: regular rhythm Heart sounds: S1 normal and S2 normal GI: Common normals: Normal to inspection, nondistended, normoactive bowel sounds present, soft to palpation, non-tender, no hepatosplenomegaly and no masses Palpation: soft and no hepatosplenomegaly Back & Pelvis: Common normals: thoracic and lumbar spine normal to inspection Extremity: Common normals: normal to inspection and normal capillary refill General: normal exam except as noted Neuro: Common normals: moves all extremities Sensorium/orientation: alert Speech: speech normal Motor exam: no movement abnormalities noted Other: Mild tenderness to palpation of right shoulder but no signs of redness, warmth or effusion. Psych: Common normals: speech normal Appearance: well kempt Speech: normal speech Mood and affect: euthymic mood Attention/concentration: attention grossly intact Memory/cognition: memory grossly intact Insight: insight good Judgement: judgment good Skin: Common normals: no rashes or lesions noted General skin exam: no rashes or lesions noted Course Course ED Course: 75-year-old male with low-grade fever, mild generalized weakness and malaise of uncertain etiology, suspect viral. We had lots of positive COVID test today. Will swab. Urinalysis collected prior to my exam is not overly suspicious for infection but will culture. Blood cultures ordered, typical sepsis labs and workup as well as chest x-ray and EKG. Will give Tylenol 1000 mg p.o. x1 and await findings. Reevaluation(s) Reevaluation #1: EKGs initially showing some concern for septal ST elevation and T-wave inversion in the lateral leads. Continues to not have any chest pain. Vitals remained stable. We have added a serum troponin and this has now come back unexpectedly positive. I have paged Cardiology only call back within about 10 minutes and have reviewed the EKG. Because it had been about 45 minutes they did want a new EKG which really does look fairly similar. I did give the patient 1 nitroglycerin just before calling Cardiology and he does report that this has made the right shoulder pain a little less intense. He was also given Tylenol for the fevers so I am not sure which is the factor but timing does seem to correlate more with the nitroglycerin. Dr. Bingham recommends aspirin, Brilinta, heparin. We will start these. Anticipating are urgent transfer to [facility] pull[facility]. Vital Signs Vital signs: Initial Vital Signs Temperature 99.7 F H 01/20/25 02:30 Temperature Source Temporal Artery Scan 01/20/25 02:30 Pulse Rate 75 01/20/25 02:30 Respiratory Rate 18 01/20/25 02:30 Blood Pressure 125/80 01/20/25 02:30 Blood Pressure Mean 95 01/20/25 02:30 Blood Pressure Position Supine 01/20/25 02:30 Pulse Oximetry 96 01/20/25 02:30 Oxygen Delivery Method Room Air 01/20/25 02:30 Vital Signs Temperature 99.7 F H 01/20/25 02:30 Pulse Rate 75 01/20/25 02:30 Respiratory Rate 18 01/20/25 02:30 Blood Pressure 125/80 01/20/25 02:30 Pulse Oximetry 96 01/20/25 02:30 Oxygen Delivery Method Room Air 01/20/25 02:30 Temperature 99.0 F 01/20/25 05:13 Pulse Rate 75 01/20/25 05:13 Respiratory Rate 16 01/20/25 05:13 Blood Pressure 125/80 01/20/25 05:13 Pulse Oximetry 92 01/20/25 04:23 Oxygen Delivery Method Room Air 01/20/25 02:30 Medications Administered Medications: Discontinued Medications Generic Name Dose Route Start Last Admin Trade Name Brianq PRN Reason Stop Dose Admin Acetaminophen 1,000 mg 01/20/25 03:07 01/20/25 03:21 Acetaminophen 500 Mg Tablet PO 01/20/25 03:08 1,000 mg ONCE ONE Administration Aspirin 324 mg 01/20/25 04:27 01/20/25 04:38 Aspirin 81 Mg Tab.Chew PO 01/20/25 04:28 324 mg ONCE ONE Administration Heparin Sodium (Porcine) 4,000 unit 01/20/25 04:27 01/20/25 04:36 Heparin 5,000 Unit/0.5 Ml Inj IVP 01/20/25 04:28 4,000 unit ONCE ONE Administration Sodium Chloride 500 mls @ 1,000 mls/hr 01/20/25 02:56 01/20/25 03:54 0.9 % Sodium Chloride 500 Ml IV 01/20/25 03:25 Infused .Q30M AMOS Infusion Heparin Sodium/Dextrose 25,000 unit in 500 mls @ 0 mls/hr 01/20/25 04:30 01/20/25 04:43 Heparin IV 950 unit/hr .Q0M AMOS 19 mls/hr Protocol Administration Per Protocol Nitroglycerin 0.4 mg 01/20/25 04:08 01/20/25 04:13 Nitroglycerin 0.4 Mg Tab.Subl SUBLINGUAL 01/20/25 04:09 0.4 mg ONCE ONE Administration Ticagrelor 180 mg 01/20/25 04:27 01/20/25 04:38 Ticagrelor 90 Mg Tablet PO 01/20/25 04:28 180 mg ONCE ONE Administration Medical Decision Making Lab Data Lab results reviewed: Yes I reviewed the patient's lab results Lab results narrative: Troponin unexpectedly positive but no significant leukocytosis or sepsis otherwise. Labs: Lab Results 01/20/25 01/20/25 01/20/25 Range/Units 02:25 02:49 03:00 WBC (4.50-11.00) K/uL RBC (4.30-5.90) m/uL Hgb (13.5-17.5) gm/dL Hct (37.0-53.0) % MCV (80-100) fL MCH (26-34) pg MCHC (32-36) gm/dL RDW Coeff of Ranjeet (11.5-15.5) % Plt Count (140-440) K/uL Neut % (Auto) (42.0-72.0) % Lymph % (Auto) (20-44) % Ponce % (Auto) (0.0-11.0) % Eos % (Auto) (0.0-7.0) % Baso % (Auto) (0.0-3.0) % Neut # (Auto) (1.7-7.0) K/uL Lymph # (Auto) (0.90-2.90) K/uL Ponce # (Auto) (0.00-0.90) K/UL Eos # (Auto) (0.00-0.50) K/uL Baso # (Auto) (0.00-0.30) K/uL Abs Immat Gran (auto) (0.00-0.30) K/uL Imm/Tot Granulo (auto) % INR 1.04 (0.91-1.10) APTT 28 (23-33) Seconds Sodium (135-149) mmol/L Potassium (3.6-5.1) mmol/L Chloride (96-114) mmol/L Carbon Dioxide (20-32) mmol/L Anion Gap (7-15) mEq/L BUN (7-30) mg/dL Creatinine (0.5-1.5) mg/dL Estimated Creat Clear Estimated GFR ml/min Glucose (60-115) mg/dL Lactate (0.5-1.9) mmol/L Calcium (8.4-10.6) mg/dL Total Bilirubin (0.1-1.5) mg/dL AST (12-35) U/L ALT (4-50) U/L Alkaline Phosphatase (40-150) U/L Troponin I (0.01-0.04) ng/mL C-Reactive Protein (0.5-1.0) mg/dL Total Protein (6.0-8.3) g/dL Albumin (3.3-5.0) g/dL Urine Color Yellow (Yellow) Urine Appearance Clear (Clear) Urine pH 6.0 (5.0-8.5) Ur Specific [place] 1.015 (1.000-1.030) Urine Protein Negative (Negative) Urine Glucose (UA) Negative (Negative) Urine Ketones Negative (Negative) Urine Blood Trace-lysed A (Negative) Urine Nitrite Negative (Negative) Urine Bilirubin Negative (Negative) Urine Urobilinogen 0.2 (0.2-1.0) Ur Leukocyte Esterase Negative (Negative) Urine RBC 0-2 (0-2) Urine WBC 0-2 (0-5) Ur Squamous Epith Cells Few (None-Few) Urine Bacteria None (None) SARS-CoV-2 (PCR) Negative SARS-CoV-2 (Negative) Influenza Type A (PCR) Negative PCR FLU A (Negative) Influenza Type B (PCR) Negative PCR FLU B (Negative) RSV (PCR) Negative PCR RSV (Negative) 01/20/25 Range/Units 03:05 WBC 12.36 H (4.50-11.00) K/uL RBC 4.51 (4.30-5.90) m/uL Hgb 13.4 L (13.5-17.5) gm/dL Hct 38.9 (37.0-53.0) % MCV 86 (80-100) fL MCH 30 (26-34) pg MCHC 34 (32-36) gm/dL RDW Coeff of Ranjeet 13.3 (11.5-15.5) % Plt Count 188 (140-440) K/uL Neut % (Auto) 72.1 H (42.0-72.0) % Lymph % (Auto) 16.6 L (20-44) % Ponce % (Auto) 10.5 (0.0-11.0) % Eos % (Auto) 0.5 (0.0-7.0) % Baso % (Auto) 0.1 (0.0-3.0) % Neut # (Auto) 8.90 H (1.7-7.0) K/uL Lymph # (Auto) 2.10 (0.90-2.90) K/uL Ponce # (Auto) 1.30 H (0.00-0.90) K/UL Eos # (Auto) 0.10 (0.00-0.50) K/uL Baso # (Auto) 0.00 (0.00-0.30) K/uL Abs Immat Gran (auto) 0.00 (0.00-0.30) K/uL Imm/Tot Granulo (auto) 0.2 % INR (0.91-1.10) APTT (23-33) Seconds Sodium 138 (135-149) mmol/L Potassium 3.3 L (3.6-5.1) mmol/L Chloride 105 (96-114) mmol/L Carbon Dioxide 27 (20-32) mmol/L Anion Gap 6 L (7-15) mEq/L BUN 20 (7-30) mg/dL Creatinine 0.9 (0.5-1.5) mg/dL Estimated Creat Clear 62.70 Estimated GFR 90 ml/min Glucose 133 H (60-115) mg/dL Lactate 1.0 (0.5-1.9) mmol/L Calcium 9.3 (8.4-10.6) mg/dL Total Bilirubin 0.5 (0.1-1.5) mg/dL AST 89 H (12-35) U/L ALT 47 (4-50) U/L Alkaline Phosphatase 52 (40-150) U/L Troponin I 20.00 H* (0.01-0.04) ng/mL C-Reactive Protein 4.9 H (0.5-1.0) mg/dL Total Protein 6.4 (6.0-8.3) g/dL Albumin 3.8 (3.3-5.0) g/dL Urine Color (Yellow) Urine Appearance (Clear) Urine pH (5.0-8.5) Ur Specific [place] (1.000-1.030) Urine Protein (Negative) Urine Glucose (UA) (Negative) Urine Ketones (Negative) Urine Blood (Negative) Urine Nitrite (Negative) Urine Bilirubin (Negative) Urine Urobilinogen (0.2-1.0) Ur Leukocyte Esterase (Negative) Urine RBC (0-2) Urine WBC (0-5) Ur Squamous Epith Cells (None-Few) Urine Bacteria (None) SARS-CoV-2 (PCR) (Negative) Influenza Type A (PCR) (Negative) Influenza Type B (PCR) (Negative) RSV (PCR) (Negative) Imaging Data Chest x-ray: Attestation: I have reviewed the pertinent imaging results. My impression: No acute findings Radiologist's impression: Technique: Two views of the chest. Comparison: Chest x-ray 12/01/2024. Findings/Impression: The heart is not abnormally enlarged. Mediastinal contours are grossly within normal limits. Mild bibasilar atelectasis. No definite confluent airspace opacity. No pleural effusion or pneumothorax. No acute osseous abnormality. Overall no significant change compared to prior chest radiograph. Dictated by Isidoro Tubbs MD @ 01/20/2025 3:18:06 AM ECG Data Attestation: I personally reviewed and interpreted this ECG as follows: Prior ECG tracings: available for review (Only prior EKG that we have is from 2016, that 1 was normal.) Interpretation: Sinus rhythm with a rate of 67. ST elevation in leads certainly V3 subtly in V2 and V4 with some T-wave inversion in all ventricular leads. Suspicious for acute ischemia. Repeat EKG 45 minutes later is similar. Discharge Plan Discharge Clinical Impression: ST elevation (STEMI) myocardial infarction Patient Disposition: [facility] Condition: Guarded Prescriptions: No Action amlodipine 10 mg tablet 10 mg PO DAILY topiramate 25 mg tablet 25 mg PO DAILY oxycodone 5 mg tablet 5 mg PO DIRECTED PRN sumatriptan succinate 100 mg tablet 100 mg PO DIRECTED Stand Alone Forms: [employer] Inceal Info Instructions
[2025-01-20 03:09] LABS: Lactate Sepsis w/Reflex* 1.0 mmol/L (0.5-1.9)
[2025-01-20 03:12] LABS: Hematocrit 38.9 % (37.0-53.0); Hemoglobin* 13.4 gm/dL (13.5-17.5); Immature Granulocytes Pct Auto 0.2 %; Mean Corpuscular HGB Conc 34 gm/dL (32-36); Mean Corpuscular Hemoglobin 30 pg (26-34); Mean Corpuscular Volume 86 fL (80-100); RDW Coefficient of Variation % 13.3 % (11.5-15.5); Red Blood Count 4.51 m/uL (4.30-5.90); White Blood Count* 12.36 K/uL (4.50-11.00)
[2025-01-20 03:16] LABS: Immature Granulocytes Abs Auto 0.00 K/uL (0.00-0.30); Lymphocytes Absolute Auto 2.10 K/uL (0.90-2.90)
[2025-01-20 03:17] LABS: Slide Review Reflex No
[2025-01-20] MEDS: ACETAMINOPHEN 500 MG TABLET 1000 MG PO (03:21)
[2025-01-20 03:22] LABS: Albumin* 3.8 g/dL (3.3-5.0); Chloride* 105 mmol/L (96-114); Potassium* 3.3 mmol/L (3.6-5.1); Sodium* 138 mmol/L (135-149)
[2025-01-20] MEDS: 0.9 % SODIUM CHLORIDE 500 ML 500 ML 1000 ML IV (03:23)
[2025-01-20 03:24] LABS: Blood Urea Nitrogen* 20 mg/dL (7-30); Creatinine* 0.9 mg/dL (0.5-1.5); Est. Creatinine Clearance* 62.70; Estimated Glomerular Filt Rate 90 ml/min
[2025-01-20 03:25] LABS: Alanine Aminotransferase* 47 U/L (4-50); Alkaline Phosphatase* 52 U/L (40-150); Anion Gap 6 mEq/L (7-15); Aspartate Amino Transferase* 89 U/L (12-35); Bilirubin Total* 0.5 mg/dL (0.1-1.5); Calcium* 9.3 mg/dL (8.4-10.6); Carbon Dioxide* 27 mmol/L (20-32); Glucose* 133 mg/dL (60-115); Total Protein* 6.4 g/dL (6.0-8.3)
[2025-01-20 03:29] LABS: PCR FLU A Negative PCR FLU A (Negative); PCR FLU B Negative PCR FLU B (Negative); PCR RSV Negative PCR RSV (Negative); SARS PCR* Negative SARS-CoV-2 (Negative)
[2025-01-20] MEDS: NITROGLYCERIN 0.4 MG TAB.SUBL SUBLINGUAL (04:13)
--- NOTE | 2025-01-20 04:25 | PC.NURSE ---
Pt states left shoulder pain is a little bit better, post NTG b/p wnl.
[2025-01-20] MEDS: HEPARIN 5,000 UNIT/0.5 ML INJ 4000 UNIT IVP (04:36)
[2025-01-20] MEDS: TICAGRELOR 90 MG TABLET 180 MG PO (04:38)
[2025-01-20] MEDS: ASPIRIN 81 MG TAB.CHEW 324 MG PO (04:38)
[2025-01-20] MEDS: HEPARIN 25,000 UNIT/500 ML BAG 19 UNIT IV (04:43)
[2025-01-20 04:45] LABS: INR 1.04 (0.91-1.10); Prothrombin Time 14.4 Seconds
[2025-02-03 07:41] LABS: Troponin, Point-of-Care* 13.98 ng/ml (0.01-0.04)
== END 2025-01-20 05:14 | disposition short-term general hospital (02) ==
PROVIDERS: Emergency Provider Family Medicine; PCP Family Medicine
DX: I21.3 ST elevation (STEMI) myocardial infarction of unspecified site (principal); M25.511 Pain in right shoulder
CPT/HCPCS: 36415; 71046; 80053; 81001; 83605; 84484; 85025; 85610; 85730; 86140; 87040; 87631; 93005; 94761; 96374; 99284; 99285; 99291; A9270; J1644; J7030

== ENCOUNTER 2025-01-20 05:00 | Outpatient (CLI) | payer MEDICARE, BC, SELFPAY | END 2025-01-20 05:01 | disposition home or self-care (01) | PROVIDERS: PCP Family Medicine; Visit Provider Emergency Medicine | DX: I21.3 ST elevation (STEMI) myocardial infarction of unspecified site (principal) | CPT/HCPCS: A0425; A0434 ==

== ENCOUNTER 2025-01-28 14:05 | Outpatient (CLI) | payer MEDICARE, BC, SELFPAY ==
--- NOTE | 2025-01-28 14:30 | CRLHL7_ITS ---
For Patients: As a result of the Century Cures Act, medical imaging exams and procedure reports are released immediately into your electronic medical record. You may view this report before your referring provider. If you have questions, please contact your health care provider. INDICATION: Chronic headaches TECHNIQUE: Noncontrast Sagittal T1,Axial FSE T2, Flair, DWI images submitted. No comparisons. FINDINGS: Moderate cerebral atrophy. 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 Cerebellar tonsils extend approximately 6 millimeters below the foramen magnum. The ventricles, sulci and gyri are of normal size, shape and contour for age and degree of atrophy. Midline structures are centrally located. No convincing evidence of suspicious intra- or extra-axial fluid collections. No regions of restricted diffusion. IMPRESSION: 1. No radiographic evidence of acute intracranial abnormalities. 2. Moderate cerebral atrophy. 3. Mild low lying cerebellar tonsils which can be a developmental variant. Dictated by Braydon Joseph MD @ 01/28/2025 4:43:49 PM (Electronically Signed)
== END 2025-01-28 14:06 | disposition home or self-care (01) ==
LOC: MRI 14:06
PROVIDERS: PCP Family Medicine; Visit Provider Nurse Practitioner
DX: R51.9 Headache, unspecified (principal); G31.9 Degenerative disease of nervous system, unspecified
CPT/HCPCS: 70551